=== PATIENT | female | born 1980 | race Caucasian/White ===

== ENCOUNTER → 2016-06-18 | Outpatient (CLI) | payer MEDICAID ==
--- NOTE | 2016-06-18 14:55 | US ---
EXAM DESCRIPTION: US LOWER EXTREMITY VEINS LIMITED/UNILATERAL/FOLLOW UP CLINICAL HISTORY: 36 y/o F, SWELLING COMPARISON: None TECHNIQUE: Duplex venous ultrasound of the right lower extremity was performed. FINDINGS: The right lower extremity veins are fully compressible and demonstrate physiologic responses to Valsalva maneuvers. Color Doppler images show no intraluminal filling defect. IMPRESSION: Negative exam. No evidence of DVT in the right lower extremity. Electronically signed by: Bandar Yadav DO 06/18/2016 14:53
== END ==
LOC: US 14:16
PROVIDERS: ATTEND Internal Medicine Hematology & Oncology
DX: M79.89 Other specified soft tissue disorders (principal); C53.9 Malignant neoplasm of cervix uteri, unspecified

== ENCOUNTER 2016-06-26 13:06 | Emergency (ER) | payer MEDICAID ==
--- NOTE | 2016-06-26 14:02 | RAD ---
EXAM DESCRIPTION: XR CHEST 2 VIEWS CLINICAL HISTORY: Fever on Chemo COMPARISON: October 07, 2015 FINDINGS: A right-sided MediPort device remains in place. The cardiomediastinal silhouette is otherwise unremarkable. There is no airspace consolidation or pleural effusion. There is no pneumothorax or acute fracture. IMPRESSION: Negative exam. No evidence of pneumonia or other intrathoracic abnormality to explain patient's symptoms. Electronically signed by: Bandar Yadav DO 06/26/2016 14:00
[2016-06-26] MEDS ORDERED: levoFLOXacin 500 MG TAB PO ONE (14:25)
[2016-06-26] MEDS ORDERED: POTASSIUM CHLORIDE 20 MEQ TAB PO ONE (14:25)
--- NOTE | 2016-06-26 14:29 | ED.PDOC ---
History of Present Illness - General Chief Complaint: Fever Stated Complaint: fever,chills Time Seen by Provider: 06/26/16 13:11 Source: patient, RN notes reviewed, Vital Signs reviewed Exam Limitations: no limitations - History of Present Illness Initial Comments: Patient started with chills last night and a fever today. She is on chemotherapy for cervical cancer and her oncologist had her come in to be checked out. She is complaining of some right flank pain and a head ache also. Her last chemotherapy treatment was 10 days ago. Timing/Duration: yesterday Fever Severity/Quality: other - 101.6 Fever Therapy REVENUE CYCLE MANAGER: Tylenol Associated Symptoms: headache, other - flank pain Review of Systems - Review of Systems Constitutional: States: chills, fever. Denies: diaphoresis, malaise, weakness EENTM: States: no symptoms reported. Denies: ear pain, ear discharge, nose pain , nose congestion, throat pain, mouth pain Respiratory: States: no symptoms reported. Denies: cough, orthopnea, short of breath, stridor, wheezing Cardiology: States: no symptoms reported. Denies: chest pain Gastrointestinal/Abdominal: States: no symptoms reported. Denies: abdominal pain, nausea, vomiting Genitourinary: States: no symptoms reported, other - HAs urostomy. Was having irritation and bleeding so she stopped her Warfarin about 8 days ago. Musculoskeletal: States: back pain. Denies: joint pain, muscle pain, muscle stiffness, neck pain Skin: States: no symptoms reported Neurological: States: headache. Denies: numbness, paresthesia, tingling, tremors, weakness Endocrine: States: no symptoms reported Past Medical History (General) - Patient Medical History Hx Seizures: No Hx Asthma: No Hx Cardiac Disorders: No Hx Congestive Heart Failure: No Hx Pacemaker: No Hx Hypertension: Yes Hx Diabetes: No Hx Cancer: Yes - cervical Hx MRSA: No Surgical History: cancer surgery - Vaccination History Hx Tetanus, Diphtheria Vaccination: No Hx Influenza Vaccination: No Hx Pneumococcal Vaccination: No Immunizations Up to Date: Yes - Social History Hx Tobacco Use: No Hx Chewing Tobacco Use: No Hx Alcohol Use: No Hx Substance Use: No Hx Substance Use Treatment: No Hx Depression: Yes - Female History Patient is a Female of Child Bearing Age (10 -59 yrs old): No Patient : No - Triage Comment ED Triage Comment: cervical ca pt Family Medical History - Family History Mother Family History: No Known Living Status: Still Living Physical Exam - Physical Exam General Appearance: Alert, Comfortable, No apparent distress ENT Exam: normal ENT inspection Neck: non-tender, full range of motion, supple, normal inspection Respiratory: chest non-tender, lungs clear, normal breath sounds, no respiratory distress, no accessory muscle use Cardiovascular/Chest: normal peripheral pulses, regular rate, rhythm, no edema, no gallop, no JVD, no murmur Gastrointestinal/Abdominal: normal bowel sounds, non tender, soft, no organomegaly, no pulsatile mass, other - Urostomy and colostomy bags in place Extremity: normal range of motion, non-tender, normal inspection, no pedal edema Neurologic: no motor/sensory deficits, alert, normal mood/affect, oriented x 3 Skin Exam: normal color, warm/dry Lymphatic: no adenopathy Progress - Progress Progress: 06/26/16 14:31 Urine shows infection. Will start Levaquin. She has not been taking the Coumadin so not worried about interaction. Her potassium is also low so will give 40meq PO Finally, will give 1L NS bolus. 06/26/16 15:17 - Results/Orders Results/Orders: Laboratory Tests 06/26/16 06/26/16 13:22 13:55 WBC 7.4 RBC 3.43 L Hgb 9.8 L Hct 30.0 L MCV 87.6 MCH 28.5 MCHC 32.7 L RDW 18.2 H Plt Count 54 L MPV 8.6 Absolute Neuts (auto) 6.10 Absolute Lymphs (auto) 0.90 L Absolute Monos (auto) 0.50 Absolute Eos (auto) 0.10 Absolute Basos (auto) 0.00 Neutrophils % 81.4 H Lymphocytes % 11.5 L Monocytes % 6.2 Eosinophils % 0.7 L Basophils % 0.2 Sodium 131 L Potassium 3.1 L Chloride 95 L Carbon Dioxide 26 Anion Gap 13.1 BUN 14 Creatinine 0.89 BUN/Creatinine Ratio 15.7 Random Glucose 111 H Serum Osmolality 263.8 L Calcium 8.9 Total Bilirubin 0.7 AST 16 ALT 15 Alkaline Phosphatase 92 Serum Total Protein 7.5 Albumin 3.6 Globulin 3.9 H Albumin/Globulin Ratio 0.9 L Urine Color Yellow Urine Appearance Cloudy Urine pH 6.0 Ur Specific [place] 1.010 Urine Protein 30 Urine Glucose (UA) Negative Urine Ketones Negative Urine Blood Small H Urine Nitrite Positive H Urine Bilirubin Negative Urine Urobilinogen 0.2 Ur Leukocyte Esterase Small H Urine RBC 5-10 H Urine WBC 10-20 H Ur Epithelial Cells 0 Urine Bacteria 2+ H - EKG/XRAY/CT XRAY: chest Xray Comments: No acute disease per Radiology Departure - Departure Clinical Impression: UTI (urinary tract infection) Time of Disposition: 15:17 Disposition: Discharge to Home or Self Care Condition: Good Departure Forms: ED Discharge - Pt. Copy, Patient Portal Self Enrollment Instructions: DI for Urinary Tract Infection (UTI) Diet: resume usual diet Referrals: [Primary Care Provider] - 1-5 Days Prescriptions: Levofloxacin [Levaquin] 500 mg PO DAILY #6 tab Home Medications: Ambulatory Orders Ibuprofen 400 mg PO BID 10/03/15 Ibuprofen 400 mg PO Q6H PRN 10/03/15 Morphine Sulfate [Morphine Sulfate ER] 60 mg PO BID 10/03/15 Alprazolam [Alprazolam ER] 2 mg PO BEDTIME PRN 06/26/16 Gabapentin [Neurontin] 300 mg PO TID 06/26/16 HYDROcodone 10MG/APAP 325MG [[place] 10/325] 1 tab PO Q6HRS PRN 06/26/16 Levofloxacin [Levaquin] 500 mg PO DAILY #6 tab 06/26/16 Warfarin Sodium 7.5 mg PO DAILY 06/26/16 Additional Instructions: Increase fluid intake. Follow up with Oncologist.
[2016-06-26] MEDS ORDERED: SODIUM CHLORIDE 0.9% 1000ML 1,000 ML IVS ONE (14:33)
[2016-06-26] MEDS ORDERED: HEPARIN SODIUM 100 U/ML 5 ML SYG IV ONE (14:35)
[2016-06-26 15:29] VITALS: BP 115/71; O2SAT 97
[2016-06-26 15:49] VITALS: TEMP 98.9
== END 2016-06-26 15:49 | disposition home or self-care (01) ==
LOC: ER 13:06
DX: N39.0 Urinary tract infection, site not specified (principal); C53.9 Malignant neoplasm of cervix uteri, unspecified; R51 Headache; I10 Essential (primary) hypertension; Z79.899 Other long term (current) drug therapy; Z79.01 Long term (current) use of anticoagulants
CPT/HCPCS: 36415; 71020; 80053; 81001; 85025; 87040; 87086; 87088; 87186; J1642; J7030

== ENCOUNTER → 2016-07-14 | Outpatient (CLI) | payer MEDICAID | END | disposition home or self-care (01) | LOC: LAB.O 09:08 | PROVIDERS: ATTEND Internal Medicine Hematology & Oncology | DX: C53.9 Malignant neoplasm of cervix uteri, unspecified (principal) ==

== ENCOUNTER → 2016-07-22 | Outpatient (CLI) | payer MEDICAID | END | disposition home or self-care (01) | LOC: LAB.O 09:13 | PROVIDERS: ATTEND Internal Medicine Hematology & Oncology | DX: C53.9 Malignant neoplasm of cervix uteri, unspecified (principal); Z72.0 Tobacco use ==

== ENCOUNTER 2016-09-19 04:06 | Emergency (ER) | payer MEDICAID ==
[2016-09-19] MEDS ORDERED: HYDROmorphone HCL INJ 2 MG/ML VIAL IV ONE (04:23)
[2016-09-19] MEDS ORDERED: SODIUM CHLORIDE 0.9% (FLUSH) 10 ML SYG IV PRN (04:23)
[2016-09-19] MEDS ORDERED: SODIUM CHLORIDE 0.9% 1000ML 1,000 ML IVS PRN (04:28)
--- NOTE | 2016-09-19 04:30 | ED.PDOC ---
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 03/17. CERVICAL CANCER SURGERY IN [place]; NOW HAS COLOSTOMY AND UROSTOMY BAGS WHICH ARE WORKING JUST FINE. HAD KIDNEY STENTS B/C TUMOR WAS PRESSING ON URETER PRIOR TO SURGERY. MOST RECENT CHEMO 2 WKS AGO. H/O TUBAL TIGATION. - History of Present Illness Timing/Duration: constant Quality/Severity: severe, sharpness Back Pain Location: other - L FLANK Improving Factors: nothing Worsening Factors: nothing Associated Symptoms: denies symptoms Allergies/Adverse Reactions: Allergies NO KNOWN ALLERGY Allergy (Verified 09/19/16 04:14) Home Medications: Ambulatory Orders Morphine Sulfate [Morphine Sulfate ER] 60 mg PO BID 10/03/15 Alprazolam [Alprazolam ER] 2 mg PO BEDTIME PRN 06/26/16 Gabapentin [Neurontin] 300 mg PO TID 06/26/16 HYDROcodone 10MG/APAP 325MG [[place] 10/325] 1 tab PO Q6HRS PRN 06/26/16 Sulfa/Trimeth 800/160 (Ds) Tab [Bactrim DS Tab] 1 unit PO BID #14 tab 09/19/16 Review of Systems - Review of Systems Constitutional: States: no symptoms reported EENTM: States: no symptoms reported Respiratory: States: no symptoms reported Cardiology: States: no symptoms reported Gastrointestinal/Abdominal: States: abdominal pain. Denies: constipation, diarrhea, nausea Genitourinary: Denies: dysuria, frequency, hematuria Musculoskeletal: States: no symptoms reported Skin: States: no symptoms reported Neurological: States: no symptoms reported Endocrine: States: no symptoms reported Hematologic/Lymphatic: States: no symptoms reported All other Systems: Reviewed and Negative Past Medical History (General) - Patient Medical History Hx Seizures: No Hx Asthma: No Hx Cardiac Disorders: No Hx Congestive Heart Failure: No Hx Pacemaker: No Hx Hypertension: Yes Hx Diabetes: No Hx Renal Disease: Yes - kidney stents, left Hx Cancer: Yes - cervical Hx MRSA: No Surgical History: Hysterectomy, other - Vaccination History Hx Tetanus, Diphtheria Vaccination: No Hx Influenza Vaccination: No Hx Pneumococcal Vaccination: No - Social History Hx Tobacco Use: No Hx Chewing Tobacco Use: No Hx Alcohol Use: No Hx Substance Use: No Hx Substance Use Treatment: No Hx Depression: Yes - Female History Patient : No Family Medical History - Family History Mother Family History: No Known Living Status: Still Living Physical Exam - Physical Exam General Appearance: Agitated, Obvious distress Eyes, Ears, Nose, Throat Exam: PERRL/EOMI, normal ENT inspection Neck Exam: non-tender, full range of motion Cardiovascular/Respiratory: regular rate, rhythm, no M/R/G Peripheral Pulses: radial,right: 2+, radial,left: 2+ Gastrointestinal/Abdominal: normal bowel sounds, non tender, soft, no organomegaly, no pulsatile mass Back Exam: normal inspection, CVA tenderness (L) Extremity Exam: no evidence of injury, normal range of motion Neurologic: roll capper II-XII nml as tested, no motor/sensory deficits, alert, oriented x 3 Skin Exam: normal color, warm/dry Progress - Results/Orders Results/Orders: UA = HEMORRHAGIC CYCTITIS. HCG NEG CBC = LEUKOPENIA, ANEMIA - FROM KNOWN CANCER AND CURRENT CHEMO. CT = HYDRONEPHROSIS/URETER FROM KNOWN CANCER FOR WHICH HAS HAD STENTS. NO STONES. I INSTRUCTED PT TO F/U WITH ONC AND URO TODAY TO ENSURE HER URETERAL STENTS ARE STILL FUNCTIONING. Departure - Departure Clinical Impression: Hemorrhagic cystitis, Hydroureter on left, Flank pain, acute, Leukopenia due to antineoplastic chemotherapy, Anemia due to antineoplastic chemotherapy Disposition: Discharge to Home or Self Care Condition: Fair Departure Forms: ED Discharge - Pt. Copy, Patient Portal Self Enrollment Instructions: DI for Urinary Tract Infection (UTI) Diet: regular diet Activity: increase activity as tolerated Referrals: Jessie Carroll MD [Primary Care Provider] - 1-2 Days Prescriptions: Sulfa/Trimeth 800/160 (Ds) Tab [Bactrim DS Tab] 1 unit PO BID #14 tab Home Medications: Ambulatory Orders Morphine Sulfate [Morphine Sulfate ER] 60 mg PO BID 10/03/15 Alprazolam [Alprazolam ER] 2 mg PO BEDTIME PRN 06/26/16 Gabapentin [Neurontin] 300 mg PO TID 06/26/16 HYDROcodone 10MG/APAP 325MG [[place] 10/325] 1 tab PO Q6HRS PRN 06/26/16 Sulfa/Trimeth 800/160 (Ds) Tab [Bactrim DS Tab] 1 unit PO BID #14 tab 09/19/16
[2016-09-19] MEDS ORDERED: MORPHINE SULFATE INJ 10 MG/ML VIAL IV ONE (05:10)
[2016-09-19] MEDS ORDERED: ONDANSETRON INJ 4 MG/2 ML VIAL IV ONE (05:11)
--- NOTE | 2016-09-19 05:14 | CT ---
EXAM DESCRIPTION: Abdoment/Pelvis w/o Contrast09/19/2016 5:07 AM CDT CLINICAL HISTORY: 36 years, Female, L FLANK PAIN COMPARISON: CT abdomen and pelvis with contrast June 13, 2015. TECHNIQUE: Volumetric CT acquisition was performed through the abdomen and pelvis. Images in the axial and coronal planes were presented for interpretation This exam was performed according to our departmental dose-optimization program, which includes automated exposure control, adjustment of the mA and/or kV according to patient size and/or use of iterative reconstruction technique. FINDINGS: The visualized portions of the lung bases are clear. The cardiomediastinal structures are within normal limits. Within the upper abdomen, the liver and spleen are normal in size and morphology. The gallbladder is normal in morphology. The intra/extrahepatic biliary tree is normal in appearance. The pancreas and adrenal glands are normal. The right kidney is normal in size. There is mild right-sided hydronephrosis and hydroureter. There are no right renal calculi or distal obstructing stones. The left kidney is edematous and enlarged. There is moderate left-sided hydronephrosis and hydroureter with periureteral and perinephric stranding. There is a right lower quadrant ileal conduit. The stomach and small intestines are within normal limits without evidence of bowel dilation or wall thickening. The appendix is not well-visualized. There are surgical changes from sigmoid colectomy. There is a left lower quadrant colostomy. The patient is status post cystectomy. There is soft tissue thickening throughout the posterior pelvis as seen on axial image 75 measuring up to 2 cm. The uterus and ovaries are surgically absent. There are no pathologically enlarged inguinal, retroperitoneal, portacaval, or mesenteric lymph nodes. The soft tissue structures of the abdominal wall are normal. The visualized osseous structures are within normal limits for the patient's age. The abdominal aorta and its primary branches are normal in course and caliber. Limited evaluation of the venous structures demonstrates no gross abnormalities. IMPRESSION: 1. Status post cystectomy and sigmoid colectomy with right lower quadrant ileal conduit and left lower quadrant colostomy. There is soft tissue thickening throughout the posterior pelvis; likely posttreatment related. Correlation with prior imaging is recommended. 2. Moderate left hydronephrosis and hydroureter mild right-sided hydronephrosis. There are no right-sided renal calculi or distal obstructing stones. Electronically signed by: Ji Davis MD 09/19/2016 5:13 AM CDT
[2016-09-19 05:39] VITALS: O2SAT 98
[2016-09-19] MEDS ORDERED: cefTRIAXone SODIUM 1 GM VIAL IM ONE (05:58)
[2016-09-19] MEDS ORDERED: LIDOCAINE 1% 10 ML VIAL INJ ONE (06:02)
[2016-09-19 06:15] VITALS: BP 109/70; TEMP 97.2
== END 2016-09-19 06:20 | disposition home or self-care (01) ==
LOC: ER 04:06
DX: N30.90 Cystitis, unspecified without hematuria (principal); D64.81 Anemia due to antineoplastic chemotherapy; D70.1 Agranulocytosis secondary to cancer chemotherapy; N13.30 Unspecified hydronephrosis; I10 Essential (primary) hypertension; C53.9 Malignant neoplasm of cervix uteri, unspecified; Z79.899 Other long term (current) drug therapy; Z93.3 Colostomy status; Z93.6 Other artificial openings of urinary tract status
CPT/HCPCS: 74176; 80053; 81001; 81025; 85025; 87086; 87088; 87186; J0696; J1170; J2270; J2405; J7030

== ENCOUNTER 2016-10-22 16:27 | Emergency (ER) | payer MEDICAID ==
--- NOTE | 2016-10-22 18:01 | US ---
EXAM DESCRIPTION: Venous, lower Extremity RT CLINICAL HISTORY: 36 years Female Knots to RLE; hx DVT's in the past COMPARISON: None. TECHNIQUE: Duplex imaging performed to evaluate the right lower extremity venous structures. Compression imaging and augmentation imaging performed. The common femoral, superficial femoral, popliteal, greater saphenous and posterior tibial veins were examined. FINDINGS: No thrombus is identified in the right lower extremity venous structures. IMPRESSION: No DVT is identified in the right lower extremity. Electronically signed by: Jose R Salazar MD 10/22/2016 6:01 PM CDT
--- NOTE | 2016-10-22 18:02 | US ---
EXAM DESCRIPTION: Venous, lower Extremity LT CLINICAL HISTORY: 36 years Female Knots to LLE; hx DVT's in the past COMPARISON: None. TECHNIQUE: Duplex imaging performed to evaluate the left lower extremity venous structures. Compression imaging and augmentation imaging performed. The common femoral, superficial femoral, popliteal, greater saphenous and posterior tibial veins were examined. FINDINGS: No thrombus is identified in the left lower extremity venous structures. IMPRESSION: No DVT is identified in the left lower extremity. Electronically signed by: Jose R Salazar MD 10/22/2016 6:02 PM CDT
--- NOTE | 2016-10-22 18:33 | ED.PDOC ---
History of Present Illness - General Chief Complaint: General Stated Complaint: Knots to BLE; tenderness Time Seen by Provider: 10/22/16 18:24 Source: patient Exam Limitations: no limitations - History of Present Illness Initial Comments: Patient is a 36 you F being treated with chemotx for cervical CA who presents with one day of "bumps" to her right leg and upper left leg. These areas are quarter size areas of erythema that are painful to touch. She says they feel like there are "knots" in them. She has no hx of these. She was worried that her right leg was swollen. No chest pain/fever/dyspnea. Her oncologist told her to come and get checked for "blood clots". No other complaints. Timing/Duration: 24 hours Severity: mild Improving Factors: nothing Worsening Factors: nothing Associated Symptoms: denies symptoms Allergies/Adverse Reactions: Allergies NO KNOWN ALLERGY Allergy (Verified 09/19/16 04:14) Home Medications: Ambulatory Orders Morphine Sulfate [Morphine Sulfate ER] 60 mg PO BID 10/03/15 Alprazolam [Alprazolam ER] 2 mg PO BEDTIME PRN 06/26/16 Gabapentin [Neurontin] 300 mg PO TID 06/26/16 HYDROcodone 10MG/APAP 325MG [[place] 10/325] 1 tab PO Q6HRS PRN 06/26/16 Sulfa/Trimeth 800/160 (Ds) Tab [Bactrim DS Tab] 1 unit PO BID #14 tab 09/19/16 Review of Systems - Review of Systems Constitutional: States: no symptoms reported EENTM: States: no symptoms reported Respiratory: States: no symptoms reported Cardiology: States: no symptoms reported Gastrointestinal/Abdominal: States: no symptoms reported Genitourinary: States: no symptoms reported Musculoskeletal: States: no symptoms reported Skin: States: see HPI Neurological: States: no symptoms reported Endocrine: States: no symptoms reported Hematologic/Lymphatic: States: no symptoms reported Past Medical History (General) - Patient Medical History Hx Seizures: No Hx Stroke: No Hx Asthma: No Hx Cardiac Disorders: No Hx Congestive Heart Failure: No Hx Pacemaker: No Hx Hypertension: Yes Hx Diabetes: No Hx Renal Disease: Yes - kidney stents, left Hx Cancer: Yes - Cervical - receiving chemo q.21 days (last tx 10/13/16) Hx MRSA: No - Vaccination History Hx Tetanus, Diphtheria Vaccination: No Hx Influenza Vaccination: No Hx Pneumococcal Vaccination: No - Social History Hx Tobacco Use: No Hx Chewing Tobacco Use: No Hx Alcohol Use: No Hx Substance Use: No Hx Substance Use Treatment: No Hx Depression: Yes - Female History Patient is a Female of Child Bearing Age (10 -59 yrs old): No Patient : No Family Medical History - Family History Mother Family History: No Known Living Status: Still Living Hx Family;Other: Pt is adopted Physical Exam - Physical Exam General Appearance: Alert Respiratory: lungs clear Cardiovascular/Chest: regular rate, rhythm Gastrointestinal/Abdominal: normal bowel sounds, non tender, soft Extremity: normal range of motion, non-tender, normal inspection, no pedal edema Skin Exam: other - 5 quarter size rashes, erythmatic, non-blanching and TTP . 4 on right thight and one left thigh. Lymphatic: no adenopathy Progress - Progress Progress: 10/22/16 18:35 Bilateral lower Extremity venous doppler showed no DVT. Departure - Departure Clinical Impression: Rash and nonspecific skin eruption Disposition: Discharge to Home or Self Care Condition: Good Departure Forms: ED Discharge - Pt. Copy, Patient Portal Self Enrollment Diet: resume usual diet Activity: increase activity as tolerated Referrals: Jessie Carroll MD [Primary Care Provider] - 1-2 Weeks Home Medications: Ambulatory Orders Morphine Sulfate [Morphine Sulfate ER] 60 mg PO BID 10/03/15 Alprazolam [Alprazolam ER] 2 mg PO BEDTIME PRN 06/26/16 Gabapentin [Neurontin] 300 mg PO TID 06/26/16 HYDROcodone 10MG/APAP 325MG [[place] 10/325] 1 tab PO Q6HRS PRN 06/26/16 Sulfa/Trimeth 800/160 (Ds) Tab [Bactrim DS Tab] 1 unit PO BID #14 tab 09/19/16 Additional Instructions: Follow up with your oncologist tomorrow as scheduled. Return to the ER for fever, chest pain, or shortness of breath.
[2016-10-22 18:52] VITALS: BP 118/87; TEMP 98.8; O2SAT 99
== END 2016-10-22 18:48 | disposition home or self-care (01) ==
LOC: ER 16:27
DX: R21 Rash and other nonspecific skin eruption (principal); R22.43 Localized swelling, mass and lump, lower limb, bilateral; C53.9 Malignant neoplasm of cervix uteri, unspecified; I10 Essential (primary) hypertension; N28.9 Disorder of kidney and ureter, unspecified; Z79.899 Other long term (current) drug therapy

== ENCOUNTER 2016-11-05 07:11 | Inpatient (IN) | payer MEDICAID ==
--- NOTE | 2016-11-05 07:23 | ED.PDOC ---
History of Present Illness - General Chief Complaint: Abdominal Pain Time Seen by Provider: 11/05/16 07:17 Source: patient Exam Limitations: no limitations - History of Present Illness Timing/Duration: 4-6 hours Severity: moderate Improving Factors: nothing Worsening Factors: nothing Associated Symptoms: other - NONE Allergies/Adverse Reactions: Allergies NO KNOWN ALLERGY Allergy (Verified 11/05/16 07:23) Home Medications: Ambulatory Orders Morphine Sulfate [Morphine Sulfate ER] 30 mg PO BID 10/03/15 Alprazolam [Alprazolam ER] 0.5 mg PO Q6HRS PRN 06/26/16 Gabapentin [Neurontin] 300 mg PO TID 06/26/16 HYDROcodone 10MG/APAP 325MG [[place] 10/325] 1 tab PO Q6HRS PRN 06/26/16 Cyclobenzaprine HCl [Flexeril] 5 mg PO TID PRN 11/05/16 Review of Systems - Review of Systems Constitutional: Denies: chills, fever EENTM: States: no symptoms reported Respiratory: Denies: cough, short of breath Cardiology: Denies: chest pain, palpitations Genitourinary: States: no symptoms reported, other - HAS ILEOSTOMY Musculoskeletal: States: no symptoms reported Skin: States: no symptoms reported Neurological: States: no symptoms reported Past Medical History (General) - Patient Medical History Hx Seizures: No Hx Stroke: No Hx Asthma: No Hx Cardiac Disorders: No Hx Congestive Heart Failure: No Hx Pacemaker: No Hx Hypertension: Yes Hx Diabetes: No Hx Renal Disease: Yes - kidney stents, left Hx Cancer: Yes - Cervical - receiving chemo q.21 days (last tx 10/13/16) Hx MRSA: No Other Surgeries:: PELVIC EXONERATION WITH ILEOSTOMY AND COLOSTOMY - Vaccination History Hx Tetanus, Diphtheria Vaccination: No Hx Influenza Vaccination: No Hx Pneumococcal Vaccination: No - Social History Hx Tobacco Use: No Hx Chewing Tobacco Use: No Hx Alcohol Use: No Hx Substance Use: No Hx Substance Use Treatment: No Hx Depression: Yes - Female History Patient : No Family Medical History - Family History Mother Family History: No Known Living Status: Still Living Hx Family;Other: Pt is adopted Physical Exam - Physical Exam General Appearance: Well Developed, Well Nourished, Other - MOD DISTRESS DUE TO PAIN Eye Exam: bilateral normal Neck: non-tender, full range of motion, supple Respiratory: lungs clear, normal breath sounds, no respiratory distress Cardiovascular/Chest: regular rate, rhythm, no murmur Gastrointestinal/Abdominal: normal bowel sounds, soft, no organomegaly, other - TENDER NEIDA LQ'S WITH NL APPEARING OSTOMIES Back Exam: normal inspection, no CVA tenderness Extremity: normal range of motion Neurologic: no motor/sensory deficits, normal mood/affect Skin Exam: normal color, warm/dry Lymphatic: no adenopathy Progress - Progress Progress: 11/05/16 08:53 BETTER, RESTING WELL, ABDOMEN SOFT, NON SURGICAL, 11/05/16 10:14 STILL FEELS BETTER BUT PULSE 120'S AFTER 1L NS. UA SHOWS INFX. WILL GET URINE AND BLOOD CX, START ABX AND ADMIT. - EKG/XRAY/CT XRAY: abdomen - NO FREE AIR, MOD STOOL, NO OBSTRUCTION Departure - Departure Clinical Impression: Pyelonephritis Abdominal pain Qualifiers: Abdominal location: left lower quadrant Qualified Code(s): R10.32 - Left lower quadrant pain Time of Disposition: 10:05 - D/W HOSPITALIST WILL ADMIT Disposition: Admit Patient Condition: Fair Referrals: Jessie Carroll MD [Primary Care Provider] - 1-2 Weeks Home Medications: Ambulatory Orders Morphine Sulfate [Morphine Sulfate ER] 30 mg PO BID 10/03/15 Alprazolam [Alprazolam ER] 0.5 mg PO Q6HRS PRN 06/26/16 Gabapentin [Neurontin] 300 mg PO TID 06/26/16 HYDROcodone 10MG/APAP 325MG [[place] 10/325] 1 tab PO Q6HRS PRN 06/26/16 Cyclobenzaprine HCl [Flexeril] 5 mg PO TID PRN 11/05/16
[2016-11-05] MEDS ORDERED: SODIUM CHLORIDE 0.9% 1000ML 1,000 ML IVS ONE ×2 (07:24→09:44)
[2016-11-05] MEDS ORDERED: PROMETHAZINE HCL INJ 12.5 MG in SODIUM CHLORIDE 0.9% 50ML 50 ML IVPB ONE (07:24)
[2016-11-05] MEDS ORDERED: HYDROmorphone HCL INJ 2 MG/ML VIAL IV ONE (07:24)
[2016-11-05] MEDS ORDERED: PROMETHAZINE HCL INJ 25 MG/ML VIAL ONE (07:40)
[2016-11-05] MEDS ORDERED: SODIUM CHLORIDE 0.9% 50ML 50 ML ONE (07:41)
--- NOTE | 2016-11-05 08:18 | RAD ---
EXAM DESCRIPTION: Abdomen Series CLINICAL HISTORY: 36 years Female, abdominal pain COMPARISON: July 22, 2015 FINDINGS: Upright PA chest with supine and upright views of the abdomen show that the lungs are clear. The heart is normal size. Bowel gas pattern unremarkable. Right subclavian venous port in good position. IMPRESSION: Normal study Electronically signed by: Alfredo Brown MD 11/05/2016 8:17 AM CDT
[2016-11-05] MEDS ORDERED: cefTRIAXone SODIUM 1 GM in SODIUM CHL 0.9% 50ML MIN-BAG+ 50 ML IVPB ONE (09:44)
[2016-11-05] MEDS ORDERED: SODIUM CHL 0.9% 50ML MIN-BAG+ 50 ML IVPB ONE (09:55)
[2016-11-05] MEDS ORDERED: cefTRIAXone SODIUM 1 GM VIAL ONE (09:55)
--- NOTE | 2016-11-05 10:36 | HP ---
SUPERVISING PHYSICIAN: Kareem Vicente MD CHIEF COMPLAINT: Abdominal pain that extends to the flank. HISTORY OF PRESENT ILLNESS: This is a 36-year-old female patient with an extensive history of cervical cancer that presented to the Emergency Room today with left sided abdominal pain that extended to the left flank. She has recently been on chemotherapy and administered last treatment on 10/13/16. She also had received blood last week and she does have a history of constipation. Workup in the Emergency Room revealed she had a urinary tract infection. Her WBCs were 3.5, hemoglobin 9.0, hematocrit 27, platelet count 23. Chemistries were unremarkable except BUN was 25. I was called for admission to the hospital for urinary tract infection. Before I accepted the patient, I contacted the patient's oncologist, Dr. Carroll in [place]. She had no issues with her being admitted to the hospital here except she requested that the patient have a CT scan of her abdomen to make sure there were not any acute processes that needed to be treated at her facility. A CT of the abdomen was done and per radiologic interpretation showed the spleen was at the upper limits of normal size, persistent left sided hydronephrosis and hydroureter observed, not significantly changed from a prior exam, the patient is post cystectomy, the patient is post distal colonic resection with colostomy, extensive presacral soft tissue thickening observed, worrisome for the possibility of neoplasm or postsurgical thickening. It remains changed from the prior exam. An abdominal x-ray was also obtained showing some constipation in the left portion of the colon, otherwise was a normal study. She was admitted to the Floor. PAST MEDICAL HISTORY: 1. Cervical cancer. PAST SURGICAL HISTORY: 1. Port placement by Dr. Espinoza. 2. Tubal ligation. 3. Stent of the kidney due to blockage of her ureter from cervical cancer mass. 4. Pelvic excavation with bladder removal and half of her colon removed with a urostomy and colostomy as well as a hysterectomy. CURRENT MEDICATIONS: Per the EMR. ALLERGIES: NO KNOWN DRUG ALLERGIES. SOCIAL HISTORY: She denies smoking, ETOH, or illicit drug use. She has three children and she is . REVIEW OF SYSTEMS: Negative except for as per history of present illness. PHYSICAL EXAMINATION: VITAL SIGNS: Temperature 99.8. Pulse 133. Blood pressure 127/88. Respiratory rate 18. O2 saturation 97% on room air. GENERAL: This is a 36-year-old female patient who is lying in her hospital bed. She is somewhat lethargic. HEENT: Normocephalic, atraumatic. Pupils are equal and reactive. NECK: Supple without mass. RESPIRATORY: Clear to auscultation bilaterally. CHEST: There is equal rise and fall of the chest with inspiration and expiration. CARDIOVASCULAR: Regular rate and rhythm. ABDOMEN: Soft, nondistended. It is diffuse tender, but slightly more tender to the left upper and lower quadrant. She does have some mild left flank pain. She has a colostomy in place as well as a urostomy. EXTREMITIES: No cyanosis, clubbing or edema. NEUROLOGIC: She is somewhat lethargic, but she awakens easily and is oriented times three. LABORATORY: Labs and films are as per the history of present illness. ASSESSMENT: 1. Urinary tract infection. 2. Thrombocytopenia. 3. Anemia with recent transfusion of blood last week. 4. Cervical cancer, recently completing chemotherapy on 10/13/16. 5. Urostomy and colostomy due to #4. 6. Constipation. PLAN: We will admit the patient to the hospital. She received some Rocephin in the Emergency Room. I will add Levaquin to that. We will monitor her cultures as they become available. Dr. Carroll was somewhat concerned with her platelets being as low as they were. She asked that if they drop below 20, that we give her platelet transfusion. She also asked us to monitor her hemoglobin and hematocrit. I will send Dr. Carroll the completed CT of the abdomen at her request and the patient has been told to take a disk to Dr. Carroll when she sees her next week. I will hold off on giving her anything for constipation as she states that once she gets on antibiotics, they give her diarrhea. If she has not had a bowel movement by tomorrow morning, we will give her some Milk of Magnesia. She also has antiemetics as needed as well as I have continued her home medications. I am also somewhat concerned about her heart rate being a little bit high although she says her heart rate runs in the one-teens anyway. She has received 3 liters of fluids and we will monitor her heart rate tomorrow. Otherwise, we will continue to monitor the patient closely and followup as needed. Dr. Vicente is the collaborating physician and available for consultation. #[id number] [facility]
--- NOTE | 2016-11-05 13:07 | CT ---
EXAM DESCRIPTION: Abdomen/Pelvis w/Contrast CLINICAL HISTORY: 36 years Female, ABDOMINAL PAIN COMPARISON: 19 September 2016 TECHNIQUE: Transaxial images were obtained during injector demonstrated intravenous contrast medium without oral contrast media. Sagittal and coronal reconstruction was performed.This exam was performed according to our departmental dose-optimization program, which includes automated exposure control, adjustment of the mA and/or kV according to patient size and/or use of iterative reconstruction technique. FINDINGS: Some scarring is observed in the right lung base. The liver is normal in appearance. The gallbladder is normal. No biliary ductal dilatation is observed. The spleen is at the upper limits of normal in size. No adrenal masses are detected. The pancreas is atrophic. Moderate left-sided hydronephrosis is observed. No right-sided hydronephrosis is seen. No solid mass or cyst is detected. Dilatation of the left ureter is observed. The dilatation is seen to extend the level of surgical clips. The hydronephrosis is similar to what was seen on the previous exam. The patient is post hysterectomy. There is evidence of extensive pelvic surgery. Presacral soft tissue thickening is observed. Bilateral osteotomies are observed in both lower quadrants. The patient is post cystectomy. No bone abnormality is seen. IMPRESSION: 1. The spleen is at the upper limits of normal in size. 2. Persistent left-sided hydronephrosis and hydroureter is observed. It is not significantly changed the prior exam. 3. The patient is post cystectomy. 4. The patient is post distal clonic resection with a colostomy. 5. Extensive presacral soft tissue thickening is observed. Its worrisome for the possibility of neoplasm or postsurgical thickening. It remains unchanged from the prior exam. Electronically signed by: Demar Mathew MD 11/05/2016 1:06 PM CDT
[2016-11-05] MEDS ORDERED: SODIUM CHLORIDE 0.9% (FLUSH) 10 ML SYG IV PRN (16:22)
[2016-11-05] MEDS ORDERED: SODIUM CHLORIDE 0.9% 1000ML 1,000 ML ONE (16:22)
[2016-11-05] MEDS ORDERED: SODIUM CHLORIDE 0.9% 1000ML 1,000 ML IVS PRN (16:25)
[2016-11-05] MEDS ORDERED: ONDANSETRON INJ 4 MG/2 ML VIAL IV PRN (16:27)
[2016-11-05] MEDS ORDERED: PANTOPRAZOLE SODIUM IV 40 MG VIAL IV SCH (16:30)
[2016-11-05] MEDS ORDERED: IV SET AND CAP CHANGE INJ INJ SCH (16:30)
[2016-11-05] MEDS ORDERED: HYDROcodone 10MG/APAP 325MG 1 EA TAB PO ONE (16:59)
[2016-11-05] MEDS ORDERED: NON-FORMULARY MEDICATION 1 EA MIS (Alprazolam [Alprazolam Er] 0.5 MG) PO PRN (18:34)
[2016-11-05] MEDS ORDERED: MORPHINE SULFATE INJ 10 MG/ML VIAL IV ONE (18:36)
[2016-11-05] MEDS ORDERED: MORPHINE ER 30 MG TAB ONE (20:29)
[2016-11-05] MEDS: KCL 20 MEQ/NS 1,000 ML IVS PRN (20:37)
[2016-11-05] MEDS: MORPHINE ER 30 MG TAB PO SCH (21:46)
[2016-11-05] MEDS: GABAPENTIN 300 MG CAP PO SCH (21:46)
[2016-11-05] MEDS ORDERED: PROCHLORPERAZINE INJ 10 MG/2 ML VIAL IV PRN (22:12)
[2016-11-06] MEDS ORDERED: levoFLOXacin 500MG IV 100 ML IVPB ONE ×2 (00:35→19:52)
[2016-11-06] MEDS: levoFLOXacin 500MG IV 500 MG in PREMIX BAG 1 BAG IVPB SCH ×2 (00:36→22:16)
[2016-11-06] MEDS: HYDROcodone 10MG/APAP 325MG 1 EA TAB PO PRN ×3 (00:41→21:23)
[2016-11-06] MEDS ORDERED: SODIUM CHL 0.9% 50ML MIN-BAG+ 0 ML IVPB ONE (01:26)
[2016-11-06] MEDS ORDERED: cefTRIAXone SODIUM 1 GM VIAL ONE ×3 (01:27→19:52)
[2016-11-06] MEDS: cefTRIAXone SODIUM 1 GM in SODIUM CHL 0.9% 50ML MIN-BAG+ 50 ML IVPB SCH ×2 (02:14→14:05)
[2016-11-06] MEDS ORDERED: ALPRAZolam 0.5 MG TAB ONE (02:37)
[2016-11-06] MEDS: CYCLOBENZAPRINE HCL 5 MG TAB PO PRN (02:38)
[2016-11-06] MEDS: ALPRAZolam 0.5 MG TAB PO PRN ×2 (02:54→21:23)
[2016-11-06] MEDS ORDERED: MAGNESIUM HYDROXIDE 30 ML UD ONE (03:04)
[2016-11-06] MEDS ORDERED: MAGNESIUM HYDROXIDE 30 ML UD PO ONE (03:05)
[2016-11-06] MEDS: KCL 20 MEQ/NS 1,000 ML IVS PRN ×2 (06:19→14:17)
[2016-11-06] MEDS: MORPHINE ER 30 MG TAB PO SCH ×2 (08:57→21:13)
[2016-11-06] MEDS: GABAPENTIN 300 MG CAP PO SCH ×3 (08:57→21:13)
[2016-11-06] MEDS ORDERED: cefTRIAXone SODIUM 1 GM VIAL IVPB ONE (12:00)
[2016-11-06] MEDS ORDERED: SODIUM CHL 0.9% 50ML MIN-BAG+ 50 ML IVPB ONE ×2 (12:52→19:52)
--- NOTE | 2016-11-06 15:41 | PCM.CORE ---
Physician DVT/VTE - Nurse DVT Assessment & Total Each Risk Factor Represents 3 Points: Hx of DVT/PE Each Risk Factor Represents 2 Points: Malignancy (present/past) DVT Assessment Score: 5 - 5 or more Very High Risk Treatments: Early Ambulation *, Sequential Compression Device
[2016-11-06] MEDS ORDERED: POTASSIUM CHLORIDE 20 MEQ TAB PO ONE (17:51)
[2016-11-06] MEDS ORDERED: PANTOPRAZOLE SODIUM IV 40 MG VIAL ONE (19:53)
[2016-11-06] MEDS ORDERED: PANTOPRAZOLE SODIUM IV 40 MG VIAL IV SCH (21:00)
[2016-11-06] MEDS: ACETAMINOPHEN 325 MG TAB PO PRN (22:51)
[2016-11-07] MEDS ORDERED: HEPARIN SODIUM 100 U/ML 5 ML SYG IV ONE (05:00)
[2016-11-07] MEDS: ACETAMINOPHEN 325 MG TAB PO PRN ×2 (05:33→20:43)
[2016-11-07] MEDS ORDERED: diphenhydrAMINE HCL 50 MG/ML VIAL IV ONE (08:44)
[2016-11-07] MEDS ORDERED: ACETAMINOPHEN 325 MG TAB PO ONE (08:44)
[2016-11-07] MEDS ORDERED: FUROSEMIDE INJ 20 MG/2 ML VIAL IV ONE (08:44)
--- NOTE | 2016-11-07 08:54 | PN ---
SUPERVISING PHYSICIAN: Nakul Devine MD DATE: 11/06/16 SUBJECTIVE: The patient is sitting up in her hospital bed. She is visiting with family. She states she feels much better today. She denies any nausea, vomiting, shortness of breath. She said she had a very good bowel movement out of her colostomy today. OBJECTIVE: VITAL SIGNS: Temperature 101.1. Pulse 121. Blood pressure 111/ 77. Respiratory rate 16. O2 saturation 98%. LUNGS: Clear to auscultation bilaterally. CARDIAC: Regular rate and rhythm. ABDOMEN: Soft, nontender, nondistended. Bowel sounds are positive. She has a colostomy in place as well as urostomy. NEUROLOGIC: Awake, alert and oriented times three. LABORATORY: WBC 2.8, hemoglobin 10.2, hematocrit 31, platelet count 22. Sodium 135, potassium 3.5, BUN 14, creatinine 0.76. Preliminary urine culture shows gram negative rods. Preliminary blood cultures show no growth after 24 hours. All other labs and films have been reviewed via the EMR. ASSESSMENT: 1. Urinary tract infection with preliminary blood cultures showing gram negative rods. 2. Thrombocytopenia. 3. Anemia with recent transfusion of blood last week. 4. Cervical cancer, recently completing chemotherapy on 10/13/16. 5. Urostomy and colostomy due to #4. 6. Constipation. PLAN: We will continue present supportive care. She is feeling much better although she is still running a temperature. We will for her urine culture before discharge for the sensitivities to evaluate her antibiotics. I have repeated her labs in the morning. We will call her oncologist, Dr. Carroll, in [place] tomorrow with an update. I have also sent the CT of her abdomen report to her clinic. She has had a good bowel movement, but will encourage her to use MiraLAX and stool softener. I will continue to monitor the patient closely and followup as needed. #[id number] [facility]
[2016-11-07] MEDS ORDERED: SODIUM CHLORIDE 0.9% 500ML 500 ML IVS SCH (09:00)
[2016-11-07] MEDS: MORPHINE ER 30 MG TAB PO SCH ×2 (10:10→20:23)
[2016-11-07] MEDS: GABAPENTIN 300 MG CAP PO SCH ×3 (10:10→20:23)
[2016-11-07] MEDS ORDERED: SODIUM CHLORIDE 0.9% 500ML 500 ML ONE (11:04)
[2016-11-07] MEDS: CYCLOBENZAPRINE HCL 5 MG TAB PO PRN (11:04)
[2016-11-07] MEDS: SODIUM CHLORIDE 0.9% (FLUSH) 10 ML SYG IV SCH ×2 (11:05→20:23)
[2016-11-07] MEDS ORDERED: MORPHINE SULFATE INJ 10 MG/ML VIAL IV ONE (15:19)
[2016-11-07] MEDS: DULoxetine HCL 30 MG CAP PO SCH (15:57)
[2016-11-07] MEDS ORDERED: ALPRAZolam 0.5 MG TAB PO ONE (16:01)
[2016-11-07] MEDS: PANTOPRAZOLE SODIUM TAB 40 MG PO SCH (18:36)
[2016-11-07] MEDS: ALPRAZolam 0.5 MG TAB PO PRN (18:36)
[2016-11-07] MEDS ORDERED: MAGNESIUM HYDROXIDE 30 ML UD PO ONE (18:50)
[2016-11-07] MEDS ORDERED: levoFLOXacin 500MG IV 100 ML IVPB ONE (20:13)
[2016-11-07] MEDS ORDERED: BIFIDOBACTERIUM INFANTIS 4 MG CAP PO SCH (21:00)
[2016-11-07] MEDS: levoFLOXacin 500MG IV 500 MG in PREMIX BAG 1 BAG IVPB SCH (22:13)
[2016-11-07] MEDS ORDERED: TEMAZEPAM 15 MG CAP PO ONE (22:45)
[2016-11-08] MEDS: PANTOPRAZOLE SODIUM TAB 40 MG PO SCH (06:53)
[2016-11-08] MEDS: GABAPENTIN 300 MG CAP PO SCH (08:56)
[2016-11-08] MEDS: MORPHINE ER 30 MG TAB PO SCH (08:56)
[2016-11-08] MEDS: DULoxetine HCL 30 MG CAP PO SCH (08:56)
[2016-11-08] MEDS: SODIUM CHLORIDE 0.9% (FLUSH) 10 ML SYG IV SCH (08:57)
--- NOTE | 2016-11-08 09:20 | PN ---
SUPERVISING PHYSICIAN: Nakul Devine MD DATE: 11/07/16 SUBJECTIVE: The patient is lying in her hospital bed. She is very tearful today. She has had a multitude of personal problems including a divorce and she is very depressed today. Otherwise, she has no complaints of abdominal pain. She does feel better since she had a bowel movement but no chest pain, nausea or vomiting. OBJECTIVE: VITAL SIGNS: She is afebrile. Heart rate 99. Blood pressure 110/74. Respiratory rate 16. O2 saturation 99%. CHEST: Clear to auscultation bilaterally. CARDIAC: Regular rate and rhythm. ABDOMEN: Soft, nontender, nondistended. Bowel sounds are positive. She has a colostomy in place and urostomy in place. NEUROLOGIC: Awake, alert and oriented times three. LABORATORY: WBC 2.4, hemoglobin 6.8, hematocrit 20.6, platelet count 26,000. Her hemoglobin and hematocrit after completion of 2 units of packed red blood cells are 10.4 and 31.3. Metabolic panel is basically within normal limits. Preliminary urine culture shows gram negative rods. Preliminary blood cultures show no growth after 48 hours. All other labs and films have been reviewed via the EMR. ASSESSMENT: 1. Urinary tract infection with preliminary blood cultures showing gram negative rods. 2. Thrombocytopenia. 3. Anemia with hemoglobin and hematocrit of 6.8 and 20.6 this AM, requiring two units of packed red blood cells. 4. Cervical cancer, recently completed chemotherapy on 10/13/16. 5. Urostomy and colostomy due to #4. 6. Constipation. PLAN: We will continue present supportive care. She received her 2 units of blood today and her hemoglobin and hematocrit have come up quite nicely. I did contact Dr. Carroll, her oncologist, and reported to her the patient's low hemoglobin and hematocrit this morning and although I do not see any obvious signs of bleeding, was quite concerned with her hemoglobin and hematocrit that had dropped overnight. The patient has an appointment with Dr. Carroll in [place] on November 14, but she would like the patient to come by her office on Thursday and have a CBC drawn to monitor her hemoglobin and hematocrit. Hopefully, her culture and sensitivity on her urine will be back in the morning and we can discharge her on oral medications. The patient was quite tearful today and depressed due to a recent divorce. I did give her an extra dose of Xanax. I have repeated her labs for in the morning to make sure she does not have another sudden drop in her hemoglobin and hematocrit. If it remains stable, she will discharge home tomorrow with close followup with Dr. Carroll on Thursday and Thursday of next week. Meanwhile, we will continue to monitor patient closely and followup as needed. Dr. Devine is the is the collaborating physician available for consultation. #[id number] [facility]
[2016-11-08] MEDS: HYDROcodone 10MG/APAP 325MG 1 EA TAB PO PRN (10:20)
[2016-11-08 10:56] VITALS: BP 130/85; TEMP 98.5; O2SAT 100
[2016-11-08] MEDS: CYCLOBENZAPRINE HCL 5 MG TAB PO PRN (13:46)
--- NOTE | 2016-11-15 18:51 | DS ---
SUPERVISING PHYSICIAN: Nakul Devine M.D. DISCHARGE DIAGNOSIS: 1. Urinary tract infection with final cultures indicating a Klebsiella planticola sensitive to all but Ampicillin, Piperacillin and Bactrim with the patient having been on parenteral antibiotics to include Rocephin showing improvement. 2. Thrombocytopenia secondary to previous chemotherapy regimen. 3. Anemia with hemoglobin and hematocrit of 6.8 and 20.6 on admission requiring 2 units of packed red blood cells showing to be stable prior to discharge secondary to previous chemotherapy regimen. 4. Cervical cancer having recently completed chemotherapy on 10/13/16. 5. Urostomy and colostomy due to #4. 6. Constipation, improved after treatment. HISTORY OF PRESENT ILLNESS: Ms. Scott is a 36-year-old female patient that has an extensive history of cervical cancer that presented to the Emergency Room on date of admission with left sided abdominal pain that extended to the left flank. She had recently been on chemotherapy and administered last treatment on 10/13/16. She also had received blood the week previous and has a known history of constipation. Workup in the Emergency Room revealed she had a urinary tract infection. Her WBCs were 3.5, hemoglobin 9.0, hematocrit 27, platelet count 23,000. Chemistries were unremarkable except BUN was slightly elevated at 25. Admission was requested for urinary tract infection. In the Emergency Department previous to admission, the on-call hospitalist contacted the patient's oncologist, Dr. Carroll in [place]. Dr. Carroll had no issues with the patient being admitted to the hospital except that she requested the patient have a CT scan of her abdomen to make sure there were not any acute processes that needed to be treated at her facility. A CT of the abdomen was completed and per radiologic interpretation revealed the spleen was at the upper limits of normal size, persistent left sided hydronephrosis and hydroureter observed, not significantly changed from a prior exam, the patient is post cystectomy as well as post distal colonic resection with colostomy, and extensive presacral soft tissue thickening was observed, worrisome for the possibility of neoplasm or postsurgical thickening. The CT remained unchanged from the previous exam. An abdominal x-ray was also obtained showing some constipation in the left portion of the colon, otherwise was a normal study. She was then admitted to the Floor in stable condition. LABORATORY: Initial white count on admission was 3.5, at discharge was 2.5. Hemoglobin initially was 9, hematocrit 27.0. On 11/07/16 after admission, she dropped down to hemoglobin 6.8, hematocrit 20.6 requiring transfusion of 2 units of packed cells. After infusion and recheck, an H&H revealed hemoglobin was 10.4 and 31.3. On 11/08/16, on date of discharge, hemoglobin dropped slightly down to 9.5, hematocrit was down to 28.5. Platelet count initially was 23,000 and had improved prior to discharge up to 31,000. Differential showed to be within normal limits. Chemistries showed normal electrolytes initially on admission with BUN 25, creatinine 0.81. Liver functions all were within normal limits. Calcium was 9.1, lactic acid 0.9. At discharge, electrolytes were within normal limits except for just a slightly elevated CO2 of 32, BUN was 13, creatinine was 0.99, calcium 9.0. Urinalysis on admission showed on dipstick a small amount of blood, positive nitrites with trace leukocyte esterase with microscopic revealing 1 to 3 RBCs, greater than 50 WBCs , 1 to 3 epithelials and 3+ bacteria. MICROBIOLOGY: She had a surveillance culture for MRSA that was no growth after 72 hours. She had 2 sets of blood cultures that remained negative after 5 days. Urine culture final results showed Klebsiella planticola sensitive to all but Ampicillin, Piperacillin and Bactrim. RADIOLOGY: Prior to admission, abdominal x-ray was completed per radiology interpretation was normal study. CT of the abdomen was also obtained prior to admission with IV contrast and per radiology interpretation there was note of spleen in the upper limits of normal with persistent left hydronephrosis and hydroureter which had not significantly changed prior to previous exams. There was note that the patient was post cholecystectomy as well as post distal colonic resection with colostomy. There was mention of extensive presacral soft tissue thickening observed which was worrisome for the possibility of neoplasm or postsurgical thickening, but remained unchanged from previous exam. HOSPITAL COURSE: Ms. Scott was admitted as noted in the History of Present Illness for urinary tract infection and anemia with abdominal pains. She was found to be constipated as well as with a urinary tract infection with final culture results showing as mentioned above, Klebsiella species. She was initially initiated on parenteral antibiotics to include Rocephin which was continued with her showing good response prior to discharge. She did drop her H &H as noted above and required transfusion of 2 units of packed cells with her completing without any complications. Her H&H had stabilized somewhat prior to discharge and it was felt that clinically she had improved well enough and she had had some good results with constipation being resolved, and was well hydrated with a followup appointment scheduled on Thursday of the week of discharge with a scheduled repeat H&H on Thursday. PLAN: The patient was discharged on 11/08/16 with instructions to have close clinical followup with Dr. Carroll on 11/14/16 at 9:30, and to please go to Dr. Carroll's office on Thursday11/10/16 for lab or to the hospital and have the lab results sent to both Alan Duggan and Dr. Carroll. She is to resume her home medications as directed and take new prescriptions as instructed. She was told to return to the hospital should she have any condition failure to improve or any other concerning symptoms. At discharge, new prescriptions were provided that included: 1. Azithromycin 500 mg daily, #7. 2. Align 4 mg at bedtime, #30. 3. Zanaflex 4 mg every 8 hours as needed, #20. The patient was discharged with diet as tolerated, activities as tolerated and condition at discharge was stable and improved. #[id number] [facility]
== END 2016-11-08 14:25 | disposition home or self-care (01) | DRG 690 ==
LOC: ER 07:11 → MS 10:35 → UNDOADMIN 10:35 → ER 15:00 → MS 15:00
PROVIDERS: ADMIT Nurse Practitioner Acute Care; ATTEND Nurse Practitioner Family
PROC: BW21YZZ Computerized Tomography (CT Scan) of Abdomen and Pelvis using Other Contrast (ICD-10-PCS; 2016-11-05)
PROC: 30233N1 Transfusion of Nonautologous Red Blood Cells into Peripheral Vein, Percutaneous Approach (ICD-10-PCS; principal; 2016-11-07)
DX: N39.0 Urinary tract infection, site not specified (principal); N13.1 Hydronephrosis with ureteral stricture, not elsewhere classified; D69.59 Other secondary thrombocytopenia; T45.1X5A Adverse effect of antineoplastic and immunosuppressive drugs, initial encounter; D64.9 Anemia, unspecified; F32.9 Major depressive disorder, single episode, unspecified; K59.00 Constipation, unspecified; I10 Essential (primary) hypertension; B96.1 Klebsiella pneumoniae [K. pneumoniae] as the cause of diseases classified elsewhere; Z85.41 Personal history of malignant neoplasm of cervix uteri; Z92.21 Personal history of antineoplastic chemotherapy; Z93.3 Colostomy status; Z93.51 Cutaneous-vesicostomy status; Z90.6 Acquired absence of other parts of urinary tract; Z90.49 Acquired absence of other specified parts of digestive tract; Z95.828 Presence of other vascular implants and grafts; Z63.5 Disruption of family by separation and divorce; Z79.891 Long term (current) use of opiate analgesic; Z79.899 Other long term (current) drug therapy; Y92.9 Unspecified place or not applicable; Z16.11 Resistance to penicillins; Z16.39 Resistance to other specified antimicrobial drug

== ENCOUNTER 2016-11-12 20:19 | Emergency (ER) | payer MEDICAID ==
--- NOTE | 2016-11-12 21:02 | ED.PDOC ---
History of Present Illness - General Chief Complaint: Lower Extremity Injury Stated Complaint: leg pain Time Seen by Provider: 11/12/16 20:46 Source: patient Exam Limitations: no limitations - History of Present Illness Initial Comments: Maddy Scott 36 y/o female with history of cervical cancer with distant metastases sp pelvic exanteration and had multiple radiation treatment to the pelvic region as well as multiple chemotherapy stated that she had sharp shooting pain on her right hip with radiation to the fron of her thighs.No history of trauma or twisting injury to backShe stated that her right lower extremities had been constantly swelled up since surgery and radiation treatment Occurred: yesterday Pain - Lower Extremity: moderate: Right Thigh/Hip Method of Injury: unknown, other - has far advanced cervical cancer Improving Factors: rest Worsening Factors: movement Allergies/Adverse Reactions: Allergies NO KNOWN ALLERGY Allergy (Verified 11/12/16 20:28) Home Medications: Ambulatory Orders Morphine Sulfate [Morphine Sulfate ER] 30 mg PO BID 10/03/15 Alprazolam [Alprazolam ER] 0.5 mg PO Q6HRS PRN 06/26/16 Gabapentin [Neurontin] 300 mg PO TID 06/26/16 HYDROcodone 10MG/APAP 325MG [Benton 10/325] 1 tab PO Q6HRS PRN 06/26/16 Cyclobenzaprine HCl [Flexeril] 5 mg PO TID PRN 11/05/16 Duloxetine HCl [Cymbalta] 60 mg PO DAILY 11/07/16 Azithromycin [Zithromax] 500 mg PO DAILY #7 tab 11/08/16 Bifidobacterium Infantis [Align] 4 mg PO BEDTIME 11/08/16 tiZANidine [Zanaflex] 4 mg PO Q8H PRN #20 tab 11/08/16 Review of Systems - Review of Systems Constitutional: States: no symptoms reported EENTM: States: no symptoms reported Respiratory: States: no symptoms reported Cardiology: States: no symptoms reported Gastrointestinal/Abdominal: States: no symptoms reported Genitourinary: States: no symptoms reported Musculoskeletal: States: see HPI, joint pain - right hip Skin: States: no symptoms reported Neurological: States: no symptoms reported Endocrine: States: no symptoms reported Hematologic/Lymphatic: States: no symptoms reported Past Medical History (General) - Patient Medical History Hx Seizures: No Hx Stroke: No Hx Asthma: No Hx of COPD: No Hx Cardiac Disorders: No Hx Congestive Heart Failure: No Hx Pacemaker: No Hx Hypertension: Yes Hx Diabetes: No Hx Renal Disease: Yes - kidney stents, left Hx Cancer: Yes - cervical Hx MRSA: Yes - 2015 Surgical History: other - pelvic exanteration with hysterectomy,colostomy, urostomy Other Surgeries:: venous doppler right leg -no dvt last month - Vaccination History Hx Tetanus, Diphtheria Vaccination: No Hx Influenza Vaccination: No Hx Pneumococcal Vaccination: No - Social History Hx Tobacco Use: No Hx Chewing Tobacco Use: No Hx Alcohol Use: No Hx Substance Use: No Hx Substance Use Treatment: No Hx Depression: Yes Hx Physical Abuse: No Hx Emotional Abuse: No - Female History Patient is a Female of Child Bearing Age (10 -59 yrs old): Yes Patient : No Family Medical History - Family History Father Living Status: Still Living Hx Family Hypertension: Yes - brother Hx Family Stroke: Yes - brother Hx Family Cancer: Yes - mom- cervical cancer Mother Family History: No Known Living Status: Still Living Hx Family;Other: Pt is adopted Physical Exam - Physical Exam General Appearance: Alert, Anxious, No apparent distress Eyes, Ears, Nose, Throat: PERRL/EOMI, normal ENT inspection, TMs normal, pharynx normal Neck: non-tender, full range of motion, supple, normal inspection Cardiovascular/Respiratory: regular rate, rhythm, no M/R/G, normal peripheral pulses, no JVD, normal breath sounds Gastrointestinal/Abdominal: non-tender, no organomegaly, other - patent urostomy and colostomy Back: normal inspection, no CVA tenderness Thigh/Hip: normal inspection, no evidence of injury, normal ROM, soft tissue tenderness - right hip Leg: normal inspection, no evidence of injury, swelling - right leg Knee: normal inspection, non-tender, no evidence of injury, normal ROM Foot: normal inspection, non-tender, no evidence of injury Neuro/Tendon: normal sensation, normal motor functions, normal tendon functions , responds to pain, no evidence tendon injury Mental Status: alert, oriented x 3 Skin: normal color, warm/dry Progress - Results/Orders Results/Orders: Vital Signs - 8 hr 11/12/16 11/12/16 11/12/16 20:27 21:36 22:08 Temperature 97.3 F L Pulse Rate [ 117 H 110 H 109 H left] Respiratory 18 18 18 Rate Blood Pressure 116/83 113/81 114/80 [left] O2 Sat by Pulse 99 97 97 Oximetry 11/12/16 21:01 IV Care:Saline Lock per Protoc QSHIFT 11/12/16 21:10 D-DIMER,QUANTITATIVE Stat Laboratory Results WBC 1.9 K/mm3 (4.8-10.8) L* 11/12/16 21:10 RBC 3.16 M/mm3 (4.20-5.40) L 11/12/16 21:10 Hgb 10.1 gm/dL (12.0-16.0) L 11/12/16 21:10 Hct 30.4 % (36.0-47.0) L 11/12/16 21:10 MCV 96.2 fl (81.0-99.0) 11/12/16 21:10 MCH 31.9 pg (27.0-31.0) H 11/12/16 21:10 MCHC 33.2 g/dL (33.0-37.0) 11/12/16 21:10 RDW 20.1 % (11.5-14.5) H 11/12/16 21:10 Plt Count 72 K/mm3 (130-400) L 11/12/16 21:10 MPV 8.1 fl (7.40-10.4) 11/12/16 21:10 Absolute Neuts (auto) 1.10 K/uL (1.8-6.8) L 11/12/16 21:10 Absolute Lymphs (auto) 0.60 K/uL (1.0-3.4) L 11/12/16 21:10 Absolute Monos (auto) 0.20 K/uL (0.2-0.8) 11/12/16 21:10 Absolute Eos (auto) 0.00 K/uL (0.0-0.4) 11/12/16 21:10 Absolute Basos (auto) 0.00 K/uL (0.0-0.1) 11/12/16 21:10 Neutrophils % Not Reportable 11/12/16 21:10 Neutrophils % (Manual) 54.0 % 11/12/16 21:10 Lymphocytes % Not Reportable 11/12/16 21:10 Lymphocytes % (Manual) 33.0 % 11/12/16 21:10 Monocytes % Not Reportable 11/12/16 21:10 Monocytes % (Manual) 11.0 % 11/12/16 21:10 Eosinophils % Not Reportable 11/12/16 21:10 Basophils % Not Reportable 11/12/16 21:10 Eosinophils 2.0 % 11/12/16 21:10 Platelet Estimate Decreased (NORMAL) 11/12/16 21:10 Normal RBC Morphology Normal rbc morph 11/12/16 21:10 Sodium 138 mmol/L (135-145) 11/12/16 21:10 Potassium 3.4 mmol/L (3.6-5.0) L 11/12/16 21:10 Chloride 100 mmol/L (101-111) L 11/12/16 21:10 Carbon Dioxide 31 mmol/L (21-31) 11/12/16 21:10 Anion Gap 10.4 (12-18) L 11/12/16 21:10 BUN 16 mg/dL (7-18) 11/12/16 21:10 Creatinine 0.94 mg/dL (0.6-1.3) 11/12/16 21:10 BUN/Creatinine Ratio 17.0 (10-20) 11/12/16 21:10 Random Glucose 88 mg/dL (70-105) 11/12/16 21:10 Serum Osmolality 276.3 mOsm/L (275-295) 11/12/16 21:10 Calcium 9.0 mg/dL (8.4-10.2) 11/12/16 21:10 Total Bilirubin 0.4 mg/dL (0.2-1.0) 11/12/16 21:10 AST 13 IU/L (10-42) 11/12/16 21:10 ALT 15 IU/L (10-60) 11/12/16 21:10 Alkaline Phosphatase 116 IU/L (42-121) 11/12/16 21:10 Creatine Kinase 20 IU/L (26-140) L 11/12/16 21:10 Serum Total Protein 8.0 gm/dL (6.4-8.2) 11/12/16 21:10 Albumin 3.3 g/dl (3.2-5.5) 11/12/16 21:10 Globulin 4.7 gm/dL (2.3-3.5) H 11/12/16 21:10 Albumin/Globulin Ratio 0.7 (1.1-1.9) L 11/12/16 21:10 Urine Color Yellow (Yellow) 11/12/16 21:10 Urine Appearance Clear (Clear) 11/12/16 21:10 Urine pH 6.5 (4.5-7.8) 11/12/16 21:10 Ur Specific [place] 1.015 (1.005-1.030) 11/12/16 21:10 Urine Protein Trace mg/dL 11/12/16 21:10 Urine Glucose (UA) Negative mg/dL (Negative) 11/12/16 21:10 Urine Ketones Negative mg/dL (NEGATIVE) 11/12/16 21:10 Urine Blood Trace-intact (Negative) H 11/12/16 21:10 Urine Nitrite Negative 11/12/16 21:10 Urine Bilirubin Negative (NEGATIVE) 11/12/16 21:10 Urine Urobilinogen 0.2 mg/dL (0.2-1.0) 11/12/16 21:10 Ur Leukocyte Esterase Negative (Negative) 11/12/16 21:10 Urine RBC 1-3 /hpf 11/12/16 21:10 Urine WBC 5-10 /hpf H 11/12/16 21:10 Ur Epithelial Cells 0 /hpf 11/12/16 21:10 Urine Bacteria 1+ 11/12/16 21:[address] Carroll regarding her leukopenia and stated since no fever no antibiotic coverage to be given and to keep appointment at her office thursday. - EKG/XRAY/CT XRAY: pelvis - no acute abnormalities noted /radiologist Departure - Departure Clinical Impression: Pain in left hip, Hx of cervical cancer, Leukopenia due to antineoplastic chemotherapy Time of Disposition: 23:12 Disposition: Discharge to Home or Self Care Condition: Fair Departure Forms: ED Discharge - Pt. Copy, Patient Portal Self Enrollment Referrals: Jessie Carroll MD [Primary Care Provider] - 1-2 Weeks Home Medications: Ambulatory Orders Morphine Sulfate [Morphine Sulfate ER] 30 mg PO BID 10/03/15 Alprazolam [Alprazolam ER] 0.5 mg PO Q6HRS PRN 06/26/16 Gabapentin [Neurontin] 300 mg PO TID 06/26/16 HYDROcodone 10MG/APAP 325MG [Benton 10/325] 1 tab PO Q6HRS PRN 06/26/16 Cyclobenzaprine HCl [Flexeril] 5 mg PO TID PRN 11/05/16 Duloxetine HCl [Cymbalta] 60 mg PO DAILY 11/07/16 Azithromycin [Zithromax] 500 mg PO DAILY #7 tab 11/08/16 Bifidobacterium Infantis [Align] 4 mg PO BEDTIME 11/08/16 tiZANidine [Zanaflex] 4 mg PO Q8H PRN #20 tab 11/08/16 Additional Instructions: Keep appointment with oncologist thursday11/14/2016 as scheduled;Follow up with primary md Dr. Esquivel 11/13/2016 call for appointment
[2016-11-12] MEDS: MORPHINE SULFATE INJ 10 MG/ML VIAL IV ONE (21:13)
[2016-11-12 21:41] VITALS: O2SAT 97
--- NOTE | 2016-11-12 22:12 | RAD ---
EXAM DESCRIPTION: Hip Bilateral (accession [id number]), Pelvis,2 or More Views (accession [id number]) CLINICAL HISTORY: pain tab COMPARISON: None FINDINGS: Two views of the right and left hip and two views of the pelvis were submitted. There is no acute fracture or dislocation. There are surgical sutures at the level of the pelvis. Bone mineralization is within normal limits. There is no radiopaque foreign body material. IMPRESSION: No acute abnormalities Electronically signed by: Salomon Castro MD 11/12/2016 10:12 PM CDT
--- NOTE | 2016-11-12 22:12 | RAD ---
EXAM DESCRIPTION: Hip Bilateral (accession [id number]), Pelvis,2 or More Views (accession [id number]) CLINICAL HISTORY: pain tab COMPARISON: None FINDINGS: Two views of the right and left hip and two views of the pelvis were submitted. There is no acute fracture or dislocation. There are surgical sutures at the level of the pelvis. Bone mineralization is within normal limits. There is no radiopaque foreign body material. IMPRESSION: No acute abnormalities Electronically signed by: Salomon Castro MD 11/12/2016 10:12 PM CDT
[2016-11-12 23:12] VITALS: TEMP 98.7
[2016-11-12] MEDS: HYDROCOD/APAP 10/325 (ER DISP) # 3 tablets PO ONE (23:19)
[2016-11-12 23:26] VITALS: BP 108/76
== END 2016-11-12 23:26 | disposition home or self-care (01) ==
LOC: ER 20:19
DX: M25.552 Pain in left hip (principal); D70.1 Agranulocytosis secondary to cancer chemotherapy; C53.9 Malignant neoplasm of cervix uteri, unspecified; C79.89 Secondary malignant neoplasm of other specified sites; Z79.899 Other long term (current) drug therapy; I10 Essential (primary) hypertension; Z86.14 Personal history of Methicillin resistant Staphylococcus aureus infection; F32.9 Major depressive disorder, single episode, unspecified
CPT/HCPCS: 36415; 72190; 73521; 80053; 81001; 82550; 85025; 85379; J2270

== ENCOUNTER 2016-11-15 23:53 | Observation (INO) | payer MEDICAID, OTHER ==
[2016-11-16] MEDS ORDERED: KETOROLAC TROMETHAMINE INJ 30 MG/ML VIAL IM ONE (00:19)
[2016-11-16] MEDS ORDERED: HYDROmorphone HCL INJ 2 MG/ML VIAL IV SCH (02:00)
--- NOTE | 2016-11-16 02:30 | RAD ---
EXAM DESCRIPTION: Pelvis portable AP view of the pelvis CLINICAL HISTORY: 36 years, Female, swelling with pain to upper leg, hx cervical cance COMPARISON: Portable AP view of the pelvis November 12, 2016 FINDINGS: There is no acute fracture or dislocation. The femoral heads are well seated in the acetabulum bilaterally. There are no significant degenerative changes. There is suture material within the pelvis consistent with prior bowel resection. There are surgical clips again noted in the right pelvis. Limited evaluation of the lower lumbar spine and sacrum demonstrate no gross abnormalities. The soft tissue structures of the pelvis and proximal thighs are grossly normal. IMPRESSION: No acute fracture or dislocation of the bony pelvis. Electronically signed by: Ji Davis MD 11/16/2016 2:30 AM CDT Workstation: [employer]
--- NOTE | 2016-11-16 02:32 | RAD ---
Procedure: XR TIBIA FIBULA 2 VIEWS Exam Date: 11/16/2016 Ordering Provider: Good Vicente Clinical Indication: swelling with pain to upper leg, hx cervical cancer Comparison: None Findings: There is no acute fracture or dislocation. There is no cortical abnormality. There is no lytic or sclerotic lesion. There is no subcutaneous gas. There is no radiopaque foreign body. Impression: 1. No acute findings in the right tibia and fibula. Electronically signed by: Garry Prince MD 11/16/2016 2:32 AM CDT
--- NOTE | 2016-11-16 02:36 | RAD ---
Procedure: XR FEMUR 2 VIEWS Exam Date: 11/16/2016 Ordering Provider: Good Vicente Clinical Indication: swelling with pain to upper leg, hx cervical cancer Comparison: None Findings: There is no acute fracture. There is no dislocation. There is no cortical abnormality. There is no lytic or sclerotic lesion. There is no subcutaneous gas. There is no suspicious calcification. Impression: 1. No acute findings in the right femur. Electronically signed by: Garry Prince MD 11/16/2016 2:29 AM CDT
--- NOTE | 2016-11-16 02:43 | ED.PDOC ---
History of Present Illness - General Chief Complaint: Lower Extremity Injury Stated Complaint: leg pain and swelling Time Seen by Provider: 11/15/16 23:56 Source: patient Exam Limitations: no limitations - History of Present Illness Initial Comments: The patient is a 36-year-old female with a history of cervical cancer status post radiation and chemotherapy as well as surgery. The patient has been having progressive pain and swelling to the right lower extremity for the past3- 4 weeks. She was recently admitted for workup for this including CT scan of the abdomen and pelvis and right lower extremity Doppler which were negative for a DVT. There was however the finding of possible recurrence in the presacral area on the right of a mass. The patient has follow-up tomorrow, Thursday with her oncologist for further evaluation for additional treatment of the problem. The patient presented tonight secondary to uncontrolled pain with her home narcotics. She reports increased swelling today in the right lower extremity compared to yesterday. She does appear to be neurovascularly intact. No palpable cords. Pain does worsen with pressure just above the inguinal ligament on the right medially. No other new symptoms. The patient did require transfusion last week. She does have known pancytopenia from the chemotherapy. Timing/Duration: unsure, constant Severity: severe Improving Factors: medication Worsening Factors: movement Associated Symptoms: malaise, weakness Allergies/Adverse Reactions: Allergies NO KNOWN ALLERGY Allergy (Verified 11/12/16 20:28) Home Medications: Ambulatory Orders Morphine Sulfate [Morphine Sulfate ER] 30 mg PO BID 10/03/15 Alprazolam [Alprazolam ER] 0.5 mg PO Q6HRS PRN 06/26/16 Gabapentin [Neurontin] 300 mg PO TID 06/26/16 HYDROcodone 10MG/APAP 325MG [[place] 10/325] 1 tab PO Q6HRS PRN 06/26/16 Cyclobenzaprine HCl [Flexeril] 5 mg PO TID PRN 11/05/16 Duloxetine HCl [Cymbalta] 60 mg PO DAILY 11/07/16 Azithromycin [Zithromax] 500 mg PO DAILY #7 tab 11/08/16 Bifidobacterium Infantis [Align] 4 mg PO BEDTIME 11/08/16 tiZANidine [Zanaflex] 4 mg PO Q8H PRN #20 tab 11/08/16 Review of Systems - Review of Systems Constitutional: States: malaise, weakness EENTM: States: no symptoms reported Respiratory: States: short of breath - with exertion Cardiology: States: no symptoms reported Gastrointestinal/Abdominal: States: abdominal pain - n the lower abdomen since her surgery Genitourinary: States: no symptoms reported - no new symptoms Musculoskeletal: States: see HPI Skin: States: no symptoms reported Neurological: States: anxiety All other Systems: No Change from Baseline Past Medical History (General) - Patient Medical History Hx Seizures: No Hx Stroke: No Hx Asthma: No Hx of COPD: No Hx Cardiac Disorders: No Hx Congestive Heart Failure: No Hx Pacemaker: No Hx Hypertension: Yes Hx Diabetes: No Hx Renal Disease: Yes - kidney stents, left Hx Cancer: Yes - Cervical Hx MRSA: Yes - 2016 - Vaccination History Hx Tetanus, Diphtheria Vaccination: No Hx Influenza Vaccination: No Hx Pneumococcal Vaccination: No - Social History Hx Tobacco Use: Yes Hx Chewing Tobacco Use: No Hx Alcohol Use: No Hx Substance Use: No Hx Substance Use Treatment: No Hx Depression: Yes Hx Physical Abuse: No Hx Emotional Abuse: No - Female History Patient : No - Triage Comment ED Triage Comment: Pt states she has right leg pain and swelling that started a few days ago and the pain has gotten out of control. Family Medical History - Family History Father Living Status: Still Living Hx Family Hypertension: Yes - brother Hx Family Stroke: Yes - brother Hx Family Cancer: Yes - mom- cervical cancer Mother Family History: No Known Living Status: Still Living Hx Family;Other: Pt is adopted Physical Exam - Physical Exam General Appearance: Alert, Obvious distress Eye Exam: bilateral normal Ears, Nose, Throat: hearing grossly normal, normal ENT inspection, normal pharynx - the patient does of course have hair loss from the chemotherapy. Neck: non-tender, full range of motion, supple, normal inspection Respiratory: chest non-tender, lungs clear, normal breath sounds, no respiratory distress, no accessory muscle use Cardiovascular/Chest: normal peripheral pulses, no edema, tachycardia - she does have known baseline tachycardia Peripheral Pulses: radial,right: 2+, radial,left: 2+, dorsalis pedis,right: 2+, dorsalis pedis,left: 2+, posterior tibialis,right: 2+, posterior tibialis,left: 2+ Gastrointestinal/Abdominal: soft - see history of present illness. Colostomy and urostomy bags are present and in place. The patient does have significant discomfort to palpation above the medial aspect of the right inguinal ligament. Rectal Exam: deferred Back Exam: normal inspection, no CVA tenderness, no vertebral tenderness Extremity: normal range of motion, no calf tenderness, normal capillary refill, swelling - of the right lower extremity in general. Range of motion is preserved. She does appear to be neurovascularly preserved in the leg. Neurologic: layout inspector II-XII nml as tested, alert, oriented x 3 Skin Exam: normal color Comments: Vital Signs - 24 hr 11/16/16 11/16/16 11/16/16 00:14 01:26 02:04 Temperature 98.1 F 98.3 F Pulse Rate [ 115 H 106 H monitor] Respiratory 16 14 Rate Blood Pressure 118/86 111/80 [Left Arm] O2 Sat by Pulse 97 98 Oximetry Progress - Progress Progress: 11/16/16 02:47 the patient is a 36-year-old female presenting secondary to uncontrolled right lower extremity pain that probably has to do with a mass that appears to be growing in the pre-pubic area on the right probably providing compression to her lymphatic system to the right leg and possibly the nerves running to her right leg. The patient has responded fairly well to Toradol and a small dose of Dilaudid. The patient may need to have her oral chronic pain medications increased to meet the needs currently. The patient will be admitted for pain management. If control can be obtained, then she can follow up with her oncologist on Thursday for continuation of her oncological care. The patient does have some pancytopenia but this does actually appear to be improved compared to last week. - Results/Orders Results/Orders: Laboratory Tests 11/16/16 11/16/16 11/16/16 01:00 01:00 01:00 WBC 2.3 L* RBC 2.86 L Hgb 9.1 L Hct 27.5 L MCV 96.2 MCH 31.8 H MCHC 33.2 RDW 20.2 H Plt Count 94 L MPV 7.0 L Absolute Neuts (auto) Not Reportable Absolute Lymphs (auto) Not Reportable Absolute Monos (auto) Not Reportable Absolute Eos (auto) Not Reportable Neutrophils % Not Reportable Neutrophils % (Manual) 58.0 Lymphocytes % Not Reportable Lymphocytes % (Manual) 25.0 Monocytes % Not Reportable Monocytes % (Manual) 13.0 Eosinophils % Not Reportable Basophils % Not Reportable Eosinophils 4.0 Platelet Estimate Decreased Anisocytosis 2+ Sodium 138 Potassium 3.7 Chloride 103 Carbon Dioxide 28 Anion Gap 10.7 L BUN 20 H Creatinine 0.86 BUN/Creatinine Ratio 23.3 H Random Glucose 106 H Serum Osmolality 278.7 Lactic Acid 0.9 Calcium 8.9 Total Bilirubin 0.4 AST 13 ALT 13 Alkaline Phosphatase 104 Serum Total Protein 8.3 H Albumin 3.3 Globulin 5.0 H Albumin/Globulin Ratio 0.7 L x-ray of the pelvis, femur and tib-fib on the right show no evidence of obvious lytic lesions. Departure - Departure Clinical Impression: Uncontrolled pain, Cervical cancer Disposition: Admit Patient Referrals: Jessie Carroll MD [Primary Care Provider] - 1-2 Weeks Home Medications: Ambulatory Orders Morphine Sulfate [Morphine Sulfate ER] 30 mg PO BID 10/03/15 Alprazolam [Alprazolam ER] 0.5 mg PO Q6HRS PRN 06/26/16 Gabapentin [Neurontin] 300 mg PO TID 06/26/16 HYDROcodone 10MG/APAP 325MG [[place] 10/325] 1 tab PO Q6HRS PRN 06/26/16 Cyclobenzaprine HCl [Flexeril] 5 mg PO TID PRN 11/05/16 Duloxetine HCl [Cymbalta] 60 mg PO DAILY 11/07/16 Azithromycin [Zithromax] 500 mg PO DAILY #7 tab 11/08/16 Bifidobacterium Infantis [Align] 4 mg PO BEDTIME 11/08/16 tiZANidine [Zanaflex] 4 mg PO Q8H PRN #20 tab 11/08/16 Decision To Admit - Decistion To Admit Decision to Admit Reason: Medical Nature Decision to Admit Date: 11/16/16 Decision to Admit Time: 02:49
[2016-11-16] MEDS ORDERED: ONDANSETRON INJ 4 MG/2 ML VIAL IV PRN (03:01)
[2016-11-16] MEDS ORDERED: MAGNESIUM HYDROXIDE 30 ML UD PO PRN (03:01)
[2016-11-16] MEDS ORDERED: HYDROmorphone HCL INJ 2 MG/ML VIAL IV PRN (03:08)
[2016-11-16] MEDS ORDERED: IV SET AND CAP CHANGE INJ INJ SCH (03:30)
--- NOTE | 2016-11-16 03:42 | HP ---
HISTORY OF PRESENT ILLNESS: This 36 year-old female is placed in the hospital for overnight observation because of worsening and intractable pain. The pain is primarily located in her right lower extremity extending from the ankle up the entirety of the right lower extremity, especially on the medial aspect up towards her right hip region. It is aggravated by weightbearing but is also present with no weightbearing in process. She admits to having had increased activity recently with moving and trying to clean her parents' home with the deadline being this particular weekend that she is placed in the hospital. Of note is that she is on morphine 30 mg twice a day under the supervision of Dr. Carroll, oncologist in [place], phone number [phone]. She has been receiving morphine 30 mg twice a day as well as [place] 10 on an as needed basis for breakthrough pain. With her increased activity leading up to this weekend and increased tendency to pain because of it, and the fact that she has run out of her breakthrough pain being [place] 10 mg for the last 2 weeks has resulted in the pain getting intolerable and unbearable. She came to the Emergency Room and was given some Toradol without significant relief and then was given some Dilaudid which helped the pain but significantly sedated her to the point that she was unable to walk or fully respond. She has rested apparently overnight and now is still quite drowsy and continued management of the pain process will continue during the day today and her night this evening. The patient has had a significant surgery with removal of metastatic ovarian cancer within her pelvis and has required the removal of her bladder and part of her colon with a urostomy and colostomy placed as a result of this significant ovarian cancer. She has completed chemotherapy recently as well. History of pancytopenia as a result of the chemotherapy. Her appetite has been fair. No significant weight loss. She has been in the Emergency Room twice since her recent hospitalization between 11/05 and 11/08/16 for a pyelonephritis or a urinary tract infection treated with cephalosporins. She is scheduled to see Dr. Carroll, oncologist, the first of this next week. Unfortunately she does not know the exact time of that appointment and no one is in the office this weekend to verify, and so it will be verified and/or rescheduled tomorrow. Renewal of her ongoing [place] and morphine will be done at that time. The patient is placed in the hospital for pain control as well as reevaluation of her general chemistry and metabolic status. Special attention to avoid falls. PAST MEDICAL HISTORY: 1. Cervical cancer post significant pelvic surgery as well as chemotherapy. PAST SURGICAL HISTORY: 1. Port placement by Dr. Espinoza. 2. Tubal ligation. 3. Stent of the kidney due to blockage of the ureter from the cervical cancer mass. 4. Pelvic excavation with bladder removal and half of her colon removed with urostomy and colostomy. 5. Hysterectomy. CURRENT MEDICATIONS: Please refer to nurses' notes for a list of verified home medications. ALLERGIES: NONE KNOWN. SOCIAL HISTORY: The patient has 3 children and is currently . She does not smoke. REVIEW OF SYSTEMS: No significant weight loss, fever or chills. HEENT: Hearing and vision is fairly normal. LUNGS: Mild shortness of breath upon exertion. CARDIOVASCULAR: No significant chest pains or dysrhythmias. ABDOMEN: Somewhat tender with colostomy and urostomy present. EXTREMITIES: Some discomfort upon range of motion of the right lower extremity with noticeable increased circumference on the right leg and thigh compared to the left. This may be related to lymphedema from the significant pelvic surgery that she has already experienced. No definite evidence of a DVT at this time. NEUROLOGIC: No significant focal weakness but generally quite weak. PHYSICAL EXAMINATION: VITAL SIGNS: Afebrile, pulse 86, blood pressure 97/69, pulse oximetry 100% on room air. Weight is 69.9 kilos. GENERAL: The patient otherwise is awake, but her eyelids are drooping and she is noticeably somewhat obtunded, somewhat sleepy-headed. Still complaining of a 5/10 pain even after the Dilaudid had been given. Continued pain control measures to continue. CHEST: Lungs have diminished breath sounds. CARDIOVASCULAR: Heart tones are regular. ABDOMEN: Has fairly good bowel tones though slightly decreased. No significant masses but generally tender, especially in the pelvic regions. EXTREMITIES: Right lower extremity noticeably larger yet coloration is normal compared to the left lower extremity. Some discomfort upon range of motion is evident, especially up into the hip and pelvic regions on the right compared to the left. LABORATORY: White count is 2,300 with 58% neutrophils, hemoglobin 9.1 with hyperchromic normocytic indices and platelets 94,000 which is higher than it has been recently. Chemistry shows potassium 3.7, BUN 20, creatinine 0.86, glucose 106, lactic acid 0.9. Liver enzymes normal with albumin 3.3. Urinalysis shows a trace of pyuria, rare bacteria and urine culture is pending. The last urine culture was positive for Klebsiella planticola on 11/05/16. X-rays of the tibia, fibula, pelvis and femur were within normal limits in the Emergency Room. ASSESSMENT: 1. Significant advanced ovarian carcinoma requiring extensive surgery as well as chemotherapy for its ongoing treatment. 2. Persistent pancytopenia probably as a result of the recent chemotherapy recently completed. 3. Significant and intolerable and intractable pain in the right lower extremity from the right hip down the leg towards the ankle, especially in the medial thigh possibly related to sacral thickening suggesting the possibility of tumor recurrence versus radiculopathy versus neuropathic pain. 4. Worsening right lower extremity pain possibly aggravated by being without her breakthrough pain of [place] 10 mg for the last 2 weeks. PLAN: Dr. Carroll, oncologist clinic, will be contacted in the morning at to verify when the patient can be seen in the clinic for specific followup. Further investigation and workup, and speciality input will be beneficial because of the persistence and worsening of the right lower extremity pain. The patient will continue with nutrition. Increase activity level today. Cutting back on her medicines and continue on morphine 30 mg every 12 hours with [place] 10 mg breakthrough pain as needed. Special attention to avoid falls and followup suggested with the clinic is very important. #[id number] MTDD
[2016-11-16] MEDS: SODIUM CHLORIDE 0.9% (FLUSH) 10 ML SYG IV PRN ×3 (04:20→22:29)
[2016-11-16] MEDS: KCL 20 MEQ/NS 1,000 ML IVS PRN ×2 (04:21→17:04)
[2016-11-16] MEDS: OMEPRAZOLE CAP 20 MG CAP PO SCH (06:03)
[2016-11-16] MEDS: KETOROLAC TROMETHAMINE INJ 30 MG/ML VIAL IV SCH ×3 (08:02→20:23)
[2016-11-16] MEDS ORDERED: MORPHINE ER 15 MG TAB PO SCH ×2 (09:00→12:08)
[2016-11-16] MEDS: GABAPENTIN 300 MG CAP PO SCH ×3 (09:03→21:01)
[2016-11-16] MEDS: HYDROcodone 10MG/APAP 325MG 1 EA TAB PO PRN (14:15)
[2016-11-16] MEDS ORDERED: MORPHINE ER 30 MG TAB ONE (19:46)
[2016-11-16] MEDS: MORPHINE ER 30 MG TAB PO SCH (21:01)
[2016-11-16] MEDS ORDERED: DULoxetine HCL 30 MG CAP PO ONE (22:21)
[2016-11-16] MEDS ORDERED: CYCLOBENZAPRINE HCL 5 MG TAB ONE (22:23)
[2016-11-16] MEDS: DULoxetine HCL 30 MG CAP PO SCH (22:33)
[2016-11-16] MEDS: CYCLOBENZAPRINE HCL 5 MG TAB PO SCH (22:38)
[2016-11-17] MEDS: SODIUM CHLORIDE 0.9% (FLUSH) 10 ML SYG IV PRN (02:05)
[2016-11-17] MEDS: KETOROLAC TROMETHAMINE INJ 30 MG/ML VIAL IV SCH ×2 (02:05→08:14)
[2016-11-17] MEDS: KCL 20 MEQ/NS 1,000 ML IVS PRN (05:16)
[2016-11-17] MEDS: OMEPRAZOLE CAP 20 MG CAP PO SCH (06:12)
[2016-11-17] MEDS ORDERED: ALPRAZolam 0.5 MG TAB PO PRN (07:12)
[2016-11-17] MEDS: GABAPENTIN 300 MG CAP PO SCH (08:47)
[2016-11-17] MEDS: DULoxetine HCL 30 MG CAP PO SCH (08:47)
[2016-11-17] MEDS: MORPHINE ER 30 MG TAB PO SCH (08:48)
[2016-11-17] MEDS: CYCLOBENZAPRINE HCL 5 MG TAB PO SCH (08:48)
[2016-11-17 10:04] VITALS: BP 114/80; TEMP 97.4; O2SAT 99
[2016-11-17] MEDS: HYDROcodone 10MG/APAP 325MG 1 EA TAB PO PRN (13:01)
--- NOTE | 2016-11-17 13:37 | DS ---
DISCHARGE DIAGNOSIS: 1. Significant advanced ovarian carcinoma, having required extensive pelvic surgery as well as chemotherapy, now completed, for ongoing treatment. 2. Persistent pancytopenia after completing chemotherapy course treatment. 3. Significant intolerable and intractable pain in the right lower extremity from the right hip down to the ankle, probably secondary to residual ovarian carcinoma within the pelvis noted on CT scan in front of the sacrum and requiring further oncological evaluation and management considering radiation therapy if it will be of benefit, etc. 4. Significant lymphedema with swelling, right lower extremity, probably secondary to the extensive surgery in the pelvis required to treat and remove as much ovarian carcinoma as possible. HISTORY OF PRESENT ILLNESS: This 36-year-old female was admitted to the hospital from the Emergency Room because of worsening and intractable pain in the right lower extremity. IT is of note that she is being followed by oncologist, Dr. Carroll, in [place]. She had an appointment this last Thursday, or two days before she was admitted to the hospital, with Dr. Carroll, but missed it because her child was ill. She apparently is on MS Contin 30 mg twice daily and hydrocodone 10 mg as [place] up to twice a day as needed for breakthrough pain. She ran out of the [place] approximately two weeks ago and has been very active in moving from one residence to another and has aggravated and exacerbated significant pain process in the right lower extremity. She was admitted to the hospital for pain control and for further evaluation, management and stabilization. She was subsequently started on analgesic program similar to what she was on before and it seemed to show some improvement to the point that she was ready for discharge with outpatient followup on the day of discharge. LABORATORY: White count was 2,300, decreasing to 1,700 with 59% neutrophils. Hemoglobin dropped from 9.1 to 8.8 and platelets from 94,000 to 81,000. This is close to her usual baseline after significant chemotherapy response in her bone marrow has resulted in persistence of the pancytopenia. Chemistries showed potassium 3.9, BUN 18, creatinine 0.82, glucose 100. Liver enzymes normal. Albumin 2.6. Urinalysis did show some pyuria and some dipstick blood with rare bacteria. Urine culture was negative, as also is the MRSA surveillance nasal culture. X-rays of the tibia, fibula, pelvis and femur were all reported as normal with no acute fractures evident. She has recently had a CT scan of the abdomen and pelvis that did show some fairly significant thickening in the pre-sacral region which may be contributing to some of this neuropathic or radicular pain that she is describing in an intolerable fashion. Close followup and further treatment options may be of assistance. HOSPITAL COURSE: The patient was feeling improved after ongoing re-introduction to a pain control program was instituted. The patient was soon able to ambulate. Though still having discomfort in her leg, it was more tolerable. PLAN: The patient is discharged home with close outpatient followup with Dr. Carroll's office on 11/28/16, at 9 AM. She is given some specific prescriptions for hydrocodone 10 mg half to 1 b.i.d. as needed for breakthrough pain, #25, as well as MS Contin 30 mg to be taken b.i.d., #25, to last until that clinic appointment. This was given to her because it would be difficult for her to go into [place] at this time because of her family situation as her pain program is continuing. Special emphasis upon good nutrition, stay active, breathe deeply, no falling. She is to take results of the x-rays on CD to Dr. Carroll's office for review and followup suggested and return if not improving. #[id number]
== END 2016-11-17 13:11 | disposition home or self-care (01) ==
LOC: ER 23:53 → MS 11-16 03:41
PROVIDERS: ADMIT Emergency Medicine; ATTEND Emergency Medicine
DX: C56.9 Malignant neoplasm of unspecified ovary (principal); D61.810 Antineoplastic chemotherapy induced pancytopenia; T45.1X5A Adverse effect of antineoplastic and immunosuppressive drugs, initial encounter; G89.3 Neoplasm related pain (acute) (chronic); M25.551 Pain in right hip; M79.651 Pain in right thigh; M25.561 Pain in right knee; M79.661 Pain in right lower leg; M25.571 Pain in right ankle and joints of right foot; I97.89 Other postprocedural complications and disorders of the circulatory system, not elsewhere classified; I89.0 Lymphedema, not elsewhere classified; N39.0 Urinary tract infection, site not specified; Z92.21 Personal history of antineoplastic chemotherapy; Z92.3 Personal history of irradiation; Z93.3 Colostomy status; Z93.6 Other artificial openings of urinary tract status; Z79.891 Long term (current) use of opiate analgesic; Z79.899 Other long term (current) drug therapy; Z90.710 Acquired absence of both cervix and uterus; Y92.009 Unspecified place in unspecified non-institutional (private) residence as the place of occurrence of the external cause
CPT/HCPCS: 36415 ×2; 72170; 73551; 73590; 80053 ×2; 81001; 83605; 85025 ×2; 87070; 87086; 94760 ×3; 96372; 96374; 96375; 96376 ×2; 99284; G0378; J1170 ×2; J1885 ×6; J3480 ×3

== ENCOUNTER 2016-11-19 21:56 | Emergency (ER) | payer OTHER ==
[2016-11-19] MEDS ORDERED: HYDROmorphone HCL INJ 2 MG/ML VIAL IM SCH (22:30)
--- NOTE | 2016-11-19 22:47 | ED.PDOC ---
History of Present Illness - General Chief Complaint: Lower Extremity Injury Stated Complaint: rt leg pain Time Seen by Provider: 11/19/16 22:01 Source: patient Exam Limitations: no limitations - History of Present Illness Initial Comments: the patient is a 36-year-old female with extensive cervical cancer that was undergone radical surgery and now has colostomy and urostomy is in place. She is presenting due to persistent pain in her right lower extremity that appears to be due to lymphedema and congestion related to her surgeries as well as a persistent mass in the right side of the pelvis. The patient has follow-up with her oncologistin the coming week to address this further. She has continued to have increasing swelling in the right lower extremity without the use of any additional compression. The patient was written for increasing opiate medications bythe record label intern here proximally 5 days ago which has helped some. The patient has run out of her colostomy and urostomy bags. This is one of the primary reason that she showed up here Today as well as of course the persistent pain to the right lower extremity. no fever. No new symptoms. the patient has had lower extremity Dopplers within the last month demonstrating no DVT as the cause of swelling Timing/Duration: unsure, constant, getting worse Severity: moderate Improving Factors: nothing Worsening Factors: movement Associated Symptoms: malaise Allergies/Adverse Reactions: Allergies NO KNOWN ALLERGY Allergy (Verified 11/12/16 20:28) Home Medications: Ambulatory Orders Alprazolam [Alprazolam ER] 0.5 mg PO Q6HRS PRN 06/26/16 Gabapentin [Neurontin] 300 mg PO TID 06/26/16 Cyclobenzaprine HCl [Flexeril] 5 mg PO TID PRN 11/05/16 Duloxetine HCl [Cymbalta] 60 mg PO DAILY 11/07/16 Azithromycin [Zithromax] 500 mg PO DAILY #7 tab 11/08/16 Bifidobacterium Infantis [Align] 4 mg PO BEDTIME 11/08/16 tiZANidine [Zanaflex] 4 mg PO Q8H PRN #20 tab 11/08/16 HYDROcodone 10MG/APAP 325MG [[place] 10/325] 1 tab PO Q8HRS PRN #25 11/17/16 Morphine Sulfate [Morphine Sulfate ER] 30 mg PO BID #25 11/17/16 Review of Systems - Review of Systems Review of Systems: 11/19/16 22:47 for any change from her baseline Constitutional: States: malaise EENTM: States: no symptoms reported Respiratory: States: no symptoms reported Cardiology: States: no symptoms reported Gastrointestinal/Abdominal: States: abdominal pain - hronic Genitourinary: States: see HPI Musculoskeletal: States: see HPI Skin: States: no symptoms reported Neurological: States: see HPI Endocrine: States: no symptoms reported All other Systems: No Change from Baseline Past Medical History (General) - Patient Medical History Hx Seizures: No Hx Stroke: No Hx Asthma: No Hx of COPD: No Hx Cardiac Disorders: No Hx Congestive Heart Failure: No Hx Pacemaker: No Hx Hypertension: Yes Hx Diabetes: No Hx Renal Disease: Yes - kidney stents, left Hx Cancer: Yes - cervical Hx MRSA: Yes - 2016 Surgical History: cancer surgery, other - Vaccination History Hx Tetanus, Diphtheria Vaccination: No Hx Influenza Vaccination: No Hx Pneumococcal Vaccination: No - Social History Hx Tobacco Use: Yes Hx Chewing Tobacco Use: No Hx Alcohol Use: No Hx Substance Use: No Hx Substance Use Treatment: No Hx Depression: Yes Hx Physical Abuse: No Hx Emotional Abuse: No - Female History Patient : No Family Medical History - Family History Father Living Status: Still Living Hx Family Hypertension: Yes - brother Hx Family Stroke: Yes - brother Hx Family Cancer: Yes - mom- cervical cancer Mother Family History: No Known Living Status: Still Living Hx Family;Other: Pt is adopted Physical Exam - Physical Exam General Appearance: Alert, Comfortable, No apparent distress Eye Exam: bilateral normal Ears, Nose, Throat: hearing grossly normal, normal ENT inspection - the patient of course has hair loss from her chemotherapy, normal pharynx Neck: non-tender, full range of motion, supple Respiratory: chest non-tender, lungs clear, normal breath sounds, no respiratory distress, no accessory muscle use Cardiovascular/Chest: normal peripheral pulses, regular rate, rhythm, no edema Peripheral Pulses: radial,right: 2+, radial,left: 2+, dorsalis pedis,right: 2+, dorsalis pedis,left: 2+, posterior tibialis,right: 2+, posterior tibialis,left: 2+ Gastrointestinal/Abdominal: other - hronic lower abdominal discomfort palpation. Urostomy and colostomy's are covered with 4 x 4's and tape. Rectal Exam: deferred Back Exam: normal inspection, no CVA tenderness Extremity: normal range of motion, normal capillary refill, other - the patient has 3+ edema to the right lower extremity and is uncomfortable to palpation all over due to the edema Neurologic: weed control inspector II-XII nml as tested, alert, normal mood/affect, oriented x 3 Skin Exam: normal color Comments: Vital Signs - 24 hr 11/19/16 22:15 Temperature 99.1 F Pulse Rate [ 109 H left] Respiratory 18 Rate Blood Pressure 98/66 [left] O2 Sat by Pulse 99 Oximetry Progress - Progress Progress: 11/19/16 22:50 the patient is a 36-year-old female presenting due to persistent pain to the right lower extremity that appears to be due to significant edema. We placed Stiven wraps for compression to help reduce tensity on the skin. these need to be adjusted every 6 hours to prevent compression bands. she reports that she does have some compression stockings at home but has not been using them. She can give these a try if she wishes. She needs to keep follow-up with her oncologist to address the background causes of the swelling. She can continue her home pain medications. The patient was given several ostomy bags to use at her diiscretion until her other ones come in tomorrow. ER warnings were given. Keep follow-up with primary care doctor as well. Departure - Departure Clinical Impression: Lymphedema, Inadequate pain control Disposition: Discharge to Home or Self Care Condition: Fair Departure Forms: ED Discharge - Pt. Copy, Patient Portal Self Enrollment Instructions: DI for Lymphedema Diet: regular diet Activity: increase activity as tolerated Referrals: Jessie Carroll MD [Primary Care Provider] - 1-2 Weeks Home Medications: Ambulatory Orders Alprazolam [Alprazolam ER] 0.5 mg PO Q6HRS PRN 06/26/16 Gabapentin [Neurontin] 300 mg PO TID 06/26/16 Cyclobenzaprine HCl [Flexeril] 5 mg PO TID PRN 11/05/16 Duloxetine HCl [Cymbalta] 60 mg PO DAILY 11/07/16 Azithromycin [Zithromax] 500 mg PO DAILY #7 tab 11/08/16 Bifidobacterium Infantis [Align] 4 mg PO BEDTIME 11/08/16 tiZANidine [Zanaflex] 4 mg PO Q8H PRN #20 tab 11/08/16 HYDROcodone 10MG/APAP 325MG [[place] 10/325] 1 tab PO Q8HRS PRN #25 11/17/16 Morphine Sulfate [Morphine Sulfate ER] 30 mg PO BID #25 11/17/16 Additional Instructions: the patient is a 36-year-old female presenting due to persistent pain to the right lower extremity that appears to be due to significant edema. We placed Stiven wraps for compression to help reduce tensity on the skin. these need to be adjusted every 6 hours to prevent compression bands. she reports that she does have some compression stockings at home but has not been using them. She can give these a try if she wishes. She needs to keep follow-up with her oncologist to address the background causes of the swelling. She can continue her home pain medications. The patient was given several ostomy bags to use at her diiscretion until her other ones come in tomorrow. ER warnings were given. Keep follow-up with primary care doctor as well.
[2016-11-19 23:10] VITALS: BP 105/73; TEMP 98.7; O2SAT 96
== END 2016-11-19 23:23 | disposition home or self-care (01) ==
LOC: ER 21:56
DX: I89.0 Lymphedema, not elsewhere classified (principal); C53.9 Malignant neoplasm of cervix uteri, unspecified; Z93.3 Colostomy status; Z93.6 Other artificial openings of urinary tract status; Z79.899 Other long term (current) drug therapy; Z87.891 Personal history of nicotine dependence

== ENCOUNTER 2016-11-23 08:00 | Emergency (ER) | payer OTHER ==
[2016-11-23 08:09] VITALS: TEMP 98.8
[2016-11-23] MEDS ORDERED: KETOROLAC TROMETHAMINE INJ 30 MG/ML VIAL IM ONE (08:33)
--- NOTE | 2016-11-23 11:21 | ED.PDOC ---
History of Present Illness - General Chief Complaint: General Stated Complaint: right leg pain Time Seen by Provider: 11/23/16 08:27 Source: patient Exam Limitations: no limitations - History of Present Illness Initial Comments: Patient presents with acute on chronic right leg pain due to swelling. She has cervical cancer and had pelvic surgery removing several structures. She was told the swelling was a result of scar tissue buildup. She has had LE dopplers with no evidence of DVT. She believes that the exacerbation of the pain is from using stairs at her [facility]. She took 3 x 30 mg morphine tablets and presents somewhat sleepy. Pain is along the entire right leg. No other complaints. Timing/Duration: 4-6 hours Severity: moderate Improving Factors: nothing Worsening Factors: nothing Associated Symptoms: denies symptoms Allergies/Adverse Reactions: Allergies NO KNOWN ALLERGY Allergy (Verified 11/12/16 20:28) Home Medications: Ambulatory Orders Alprazolam [Alprazolam ER] 0.5 mg PO Q6HRS PRN 06/26/16 Gabapentin [Neurontin] 300 mg PO TID 06/26/16 Cyclobenzaprine HCl [Flexeril] 5 mg PO TID PRN 11/05/16 Duloxetine HCl [Cymbalta] 60 mg PO DAILY 11/07/16 Azithromycin [Zithromax] 500 mg PO DAILY #7 tab 11/08/16 Bifidobacterium Infantis [Align] 4 mg PO BEDTIME 11/08/16 tiZANidine [Zanaflex] 4 mg PO Q8H PRN #20 tab 11/08/16 HYDROcodone 10MG/APAP 325MG [[place] 10/325] 1 tab PO Q8HRS PRN #25 11/17/16 Morphine Sulfate [Morphine Sulfate ER] 30 mg PO BID #25 11/17/16 Ketorolac Tromethamine [Toradol Tabs] 10 mg PO Q6HR #16 tab 11/23/16 Review of Systems - Review of Systems Constitutional: States: no symptoms reported EENTM: States: no symptoms reported Respiratory: States: no symptoms reported Cardiology: States: no symptoms reported Gastrointestinal/Abdominal: States: no symptoms reported Genitourinary: States: no symptoms reported Musculoskeletal: States: see HPI Skin: States: no symptoms reported Neurological: States: no symptoms reported Endocrine: States: no symptoms reported Hematologic/Lymphatic: States: no symptoms reported Past Medical History (General) - Patient Medical History Hx Seizures: No Hx Stroke: No Hx Asthma: No Hx of COPD: No Hx Cardiac Disorders: No Hx Congestive Heart Failure: No Hx Pacemaker: No Hx Hypertension: Yes Hx Diabetes: No Hx Renal Disease: Yes - kidney stents, left Hx Cancer: Yes - cervical Hx MRSA: Yes - 2016 Surgical History: cancer surgery - Vaccination History Hx Tetanus, Diphtheria Vaccination: No Hx Influenza Vaccination: No Hx Pneumococcal Vaccination: No - Social History Hx Tobacco Use: Yes Hx Chewing Tobacco Use: No Hx Alcohol Use: No Hx Substance Use: No Hx Substance Use Treatment: No Hx Depression: Yes Hx Physical Abuse: No Hx Emotional Abuse: No - Female History Patient : No Family Medical History - Family History Father Living Status: Still Living Hx Family Hypertension: Yes - brother Hx Family Stroke: Yes - brother Hx Family Cancer: Yes - mom- cervical cancer Mother Family History: No Known Living Status: Still Living Hx Family;Other: Pt is adopted Physical Exam - Physical Exam General Appearance: Alert Respiratory: lungs clear Cardiovascular/Chest: regular rate, rhythm Gastrointestinal/Abdominal: normal bowel sounds, non tender, soft Extremity: other - Right leg is edematous, NT, from the foot to the hip. No erythema. Left leg has a normal exam. Progress - Progress Progress: 11/23/16 11:22 Patient was put on monitors out of concern for her large morphine intake this morning. She did well and respirations and hear rate stayed wnl. She was given toradol 30 mg IV x one. She was awake and alert at time of discharge. Given RX for toradol 10 mg po q6 hours prn. She is going to her oncologist tomorrow. We reviewed care of the swelling in the right leg which included compression stocking, SKY wrapping, and elevation. Departure - Departure Clinical Impression: Lower extremity edema Disposition: Discharge to Home or Self Care Condition: Good Departure Forms: ED Discharge - Pt. Copy, Patient Portal Self Enrollment Diet: resume usual diet Activity: increase activity as tolerated Referrals: Jessie Carroll MD [Primary Care Provider] - 1-2 Weeks Prescriptions: Ketorolac Tromethamine [Toradol Tabs] 10 mg PO Q6HR #16 tab Home Medications: Ambulatory Orders Alprazolam [Alprazolam ER] 0.5 mg PO Q6HRS PRN 06/26/16 Gabapentin [Neurontin] 300 mg PO TID 06/26/16 Cyclobenzaprine HCl [Flexeril] 5 mg PO TID PRN 11/05/16 Duloxetine HCl [Cymbalta] 60 mg PO DAILY 11/07/16 Azithromycin [Zithromax] 500 mg PO DAILY #7 tab 11/08/16 Bifidobacterium Infantis [Align] 4 mg PO BEDTIME 11/08/16 tiZANidine [Zanaflex] 4 mg PO Q8H PRN #20 tab 11/08/16 HYDROcodone 10MG/APAP 325MG [[place] 10/325] 1 tab PO Q8HRS PRN #25 11/17/16 Morphine Sulfate [Morphine Sulfate ER] 30 mg PO BID #25 11/17/16 Ketorolac Tromethamine [Toradol Tabs] 10 mg PO Q6HR #16 tab 11/23/16 Additional Instructions: See your oncologist tomorrow as planned.
[2016-11-23 11:34] VITALS: BP 105/62; O2SAT 97
== END 2016-11-23 11:34 | disposition home or self-care (01) ==
LOC: ER 08:00
DX: R60.0 Localized edema (principal); I10 Essential (primary) hypertension; F32.9 Major depressive disorder, single episode, unspecified; Z86.14 Personal history of Methicillin resistant Staphylococcus aureus infection; Z79.899 Other long term (current) drug therapy; Z85.41 Personal history of malignant neoplasm of cervix uteri; Z87.891 Personal history of nicotine dependence

== ENCOUNTER 2016-11-25 20:40 | Emergency (ER) | payer OTHER ==
[2016-11-25] MEDS ORDERED: MORPHINE SULFATE INJ 10 MG/ML VIAL IV ONE ×2 (21:40→23:15)
--- NOTE | 2016-11-25 22:52 | ED.PDOC ---
History of Present Illness - General Chief Complaint: General Stated Complaint: uncontrolled pain Time Seen by Provider: 11/25/16 21:31 Source: patient Exam Limitations: no limitations - History of Present Illness Initial Comments: Patient presents with increasing pain in her right lower extremity. She has been to the E.R. here several times for the same. She has been told that the pain is due to edema from scarring after radical surgery to remove metastatic cervical CA. She has had several dopplers that did not show DVT. She says that the leg is throbbing and feels like it has "its own heartbeat". She has run out of her pain medications and does not have an appointment with her oncologist for three more days. No other complaints. Timing/Duration: constant, getting worse Severity: severe Improving Factors: nothing Worsening Factors: movement Associated Symptoms: denies symptoms Allergies/Adverse Reactions: Allergies NO KNOWN ALLERGY Allergy (Verified 11/12/16 20:28) Home Medications: Ambulatory Orders Alprazolam [Alprazolam ER] 0.5 mg PO Q6HRS PRN 06/26/16 Gabapentin [Neurontin] 300 mg PO TID 06/26/16 Cyclobenzaprine HCl [Flexeril] 5 mg PO TID PRN 11/05/16 Duloxetine HCl [Cymbalta] 60 mg PO DAILY 11/07/16 Azithromycin [Zithromax] 500 mg PO DAILY #7 tab 11/08/16 Bifidobacterium Infantis [Align] 4 mg PO BEDTIME 11/08/16 tiZANidine [Zanaflex] 4 mg PO Q8H PRN #20 tab 11/08/16 HYDROcodone 10MG/APAP 325MG [[place] 10/325] 1 tab PO Q8HRS PRN #25 11/17/16 Morphine Sulfate [Morphine Sulfate ER] 30 mg PO BID #25 11/17/16 Ketorolac Tromethamine [Toradol Tabs] 10 mg PO Q6HR #16 tab 11/23/16 Review of Systems - Review of Systems Constitutional: States: no symptoms reported EENTM: States: no symptoms reported Respiratory: States: no symptoms reported Cardiology: States: no symptoms reported Gastrointestinal/Abdominal: States: no symptoms reported Genitourinary: States: no symptoms reported Musculoskeletal: States: see HPI Skin: States: no symptoms reported Neurological: States: no symptoms reported Endocrine: States: no symptoms reported Hematologic/Lymphatic: States: no symptoms reported Past Medical History (General) - Patient Medical History Hx Seizures: No Hx Stroke: No Hx Asthma: No Hx of COPD: No Hx Cardiac Disorders: No Hx Congestive Heart Failure: No Hx Pacemaker: No Hx Hypertension: Yes Hx Diabetes: No Hx Renal Disease: Yes - kidney stents, left Hx Cancer: Yes - cervical cancer Hx MRSA: Yes - 2016 Surgical History: cancer surgery, colectomy, Hysterectomy - Vaccination History Hx Tetanus, Diphtheria Vaccination: No Hx Influenza Vaccination: No Hx Pneumococcal Vaccination: No - Social History Hx Tobacco Use: Yes Hx Chewing Tobacco Use: No Hx Alcohol Use: No Hx Substance Use: No Hx Substance Use Treatment: No Hx Depression: Yes Hx Physical Abuse: No Hx Emotional Abuse: No - Female History Patient : No - Triage Comment ED Triage Comment: Pt c/o uncontrolled pain due to her cervical cancer. C/o pain to right lower leg. Family Medical History - Family History Father Living Status: Still Living Hx Family Hypertension: Yes - brother Hx Family Stroke: Yes - brother Hx Family Cancer: Yes - mom- cervical cancer Mother Family History: No Known Living Status: Still Living Hx Family;Other: Pt is adopted Physical Exam - Physical Exam General Appearance: Alert Respiratory: lungs clear Cardiovascular/Chest: regular rate, rhythm Gastrointestinal/Abdominal: normal bowel sounds, non tender, soft Extremity: swelling - 3+ lower extremity edema. Non-pitting. TTP. No erythema. No palpable venous cords. Progress - Progress Progress: 11/25/16 22:53 D-dimer 704 platelets 172 I called her oncologist, Dr. Waterman, who informed me that the patient did have a DVT after her surgery one year ago. She said that she could not anticoagulate the patient because of low platelets secondary to cancer treatment. She suggested that we have the patient receive a lower extremity doppler YASH and further treatment of a DVT by a production cloth cutter if necessary. Patient was transferred to [facility] for the purporse of determining and treating a possible DVT. 11/25/16 22:56 Departure - Departure Clinical Impression: Lower extremity edema Disposition: Transfer to Hospital Condition: Good Departure Forms: ED Discharge - Pt. Copy, Patient Portal Self Enrollment Diet: other - NPO Activity: other - as per hospitalist Referrals: Jessie Carroll MD [Primary Care Provider] - 1-2 Weeks Home Medications: Ambulatory Orders Alprazolam [Alprazolam ER] 0.5 mg PO Q6HRS PRN 06/26/16 Gabapentin [Neurontin] 300 mg PO TID 06/26/16 Cyclobenzaprine HCl [Flexeril] 5 mg PO TID PRN 11/05/16 Duloxetine HCl [Cymbalta] 60 mg PO DAILY 11/07/16 Azithromycin [Zithromax] 500 mg PO DAILY #7 tab 11/08/16 Bifidobacterium Infantis [Align] 4 mg PO BEDTIME 11/08/16 tiZANidine [Zanaflex] 4 mg PO Q8H PRN #20 tab 11/08/16 HYDROcodone 10MG/APAP 325MG [[place] 10/325] 1 tab PO Q8HRS PRN #25 11/17/16 Morphine Sulfate [Morphine Sulfate ER] 30 mg PO BID #25 11/17/16 Ketorolac Tromethamine [Toradol Tabs] 10 mg PO Q6HR #16 tab 11/23/16
[2016-11-25 23:30] VITALS: BP 138/90; TEMP 98; O2SAT 95
== END 2016-11-25 23:29 | disposition short-term general hospital (02) ==
LOC: ER 20:40
DX: R60.9 Edema, unspecified (principal); G89.3 Neoplasm related pain (acute) (chronic); M79.661 Pain in right lower leg; C53.9 Malignant neoplasm of cervix uteri, unspecified; F32.9 Major depressive disorder, single episode, unspecified; Z86.718 Personal history of other venous thrombosis and embolism; Z87.891 Personal history of nicotine dependence; Z86.14 Personal history of Methicillin resistant Staphylococcus aureus infection; Z79.899 Other long term (current) drug therapy; Z98.890 Other specified postprocedural states
CPT/HCPCS: 36415; 80048; 80076; 85025; 85379; 96374; 96376; 99285; J2270

== ENCOUNTER 2016-12-01 23:55 | Emergency (ER) | payer OTHER ==
--- NOTE | 2016-12-02 00:15 | ED.PDOC ---
History of Present Illness - General Chief Complaint: Lower Extremity Injury Time Seen by Provider: 12/01/16 23:58 Source: patient Exam Limitations: no limitations - History of Present Illness Initial Comments: the patient is a 36-year-old female presenting to the emergency room secondary to uncontrolled pain in her right lower extremity related to her pelvic cancer The patient had a negative doppler here in October and had apparently also had another ultrasound done elsewhere that was negative around the same time. Last week she received another ultrasound at [facility] that was positive for a DVT in the right lower extremity. She is now on Lovenox injections and the swelling is going down. she is however out of her chronic pain medications including morphine and hydrocodone. She is due to see her oncologist and pain management doctor in 48 hours. she is not having any chest pain or shortness of breath. Occurred: other Pain - Lower Extremity: severe: Right Thigh/Hip Method of Injury: other Improving Factors: immobilization Worsening Factors: movement Allergies/Adverse Reactions: Allergies NO KNOWN ALLERGY Allergy (Verified 11/12/16 20:28) Home Medications: Ambulatory Orders Alprazolam [Alprazolam ER] 0.5 mg PO Q6HRS PRN 06/26/16 Gabapentin [Neurontin] 300 mg PO TID 06/26/16 Cyclobenzaprine HCl [Flexeril] 5 mg PO TID PRN 11/05/16 Duloxetine HCl [Cymbalta] 60 mg PO DAILY 11/07/16 Azithromycin [Zithromax] 500 mg PO DAILY #7 tab 11/08/16 Bifidobacterium Infantis [Align] 4 mg PO BEDTIME 11/08/16 tiZANidine [Zanaflex] 4 mg PO Q8H PRN #20 tab 11/08/16 HYDROcodone 10MG/APAP 325MG [[place] 10/325] 1 tab PO Q8HRS PRN #25 11/17/16 Morphine Sulfate [Morphine Sulfate ER] 30 mg PO BID #25 11/17/16 Ketorolac Tromethamine [Toradol Tabs] 10 mg PO Q6HR #16 tab 11/23/16 Review of Systems - Review of Systems Constitutional: States: malaise EENTM: States: no symptoms reported Respiratory: States: no symptoms reported Cardiology: States: no symptoms reported Gastrointestinal/Abdominal: States: abdominal pain Musculoskeletal: States: see HPI Skin: States: no symptoms reported Neurological: States: anxiety Endocrine: States: no symptoms reported All other Systems: No Change from Baseline Past Medical History (General) - Patient Medical History Hx Seizures: No Hx Stroke: No Hx Asthma: No Hx of COPD: No Hx Cardiac Disorders: No Hx Congestive Heart Failure: No Hx Pacemaker: No Hx Hypertension: Yes Hx Diabetes: No Hx Renal Disease: Yes - kidney stents, left Hx Cancer: Yes - cervical cancer Hx MRSA: Yes - 2016 - Vaccination History Hx Tetanus, Diphtheria Vaccination: No Hx Influenza Vaccination: No Hx Pneumococcal Vaccination: No - Social History Hx Tobacco Use: Yes Hx Chewing Tobacco Use: No Hx Alcohol Use: No Hx Substance Use: No Hx Substance Use Treatment: No Hx Depression: Yes Hx Physical Abuse: No Hx Emotional Abuse: No - Female History Patient : No Family Medical History - Family History Father Living Status: Still Living Hx Family Hypertension: Yes - brother Hx Family Stroke: Yes - brother Hx Family Cancer: Yes - mom- cervical cancer Mother Family History: No Known Living Status: Still Living Hx Family;Other: Pt is adopted Physical Exam - Physical Exam General Appearance: Alert, Obvious distress Eyes, Ears, Nose, Throat: PERRL/EOMI, normal ENT inspection, TMs normal Neck: full range of motion, supple Cardiovascular/Respiratory: regular rate, rhythm, normal peripheral pulses, normal breath sounds, no respiratory distress Gastrointestinal/Abdominal: other - right lower quadrant discomfort palpation.colostomy and urostomy's are in place and without evidence of obvious infection. Back: normal inspection, no CVA tenderness, no vertebral tenderness Thigh/Hip: other - ight proximal lower extremities uncomfortable to palpation and movement. Swelling is significantly decreased from previous. No significant left lower extremity pain. Knee: normal inspection - mild edema, no evidence of injury, normal ROM Ankle: normal inspection, non-tender, normal ROM, swelling Foot: normal inspection, non-tender, no evidence of injury, normal ROM, swelling - ild Neuro/Tendon: normal sensation, normal tendon functions, no evidence tendon injury Mental Status: alert, oriented x 3, depressed affect Skin: normal color Progress - Progress Progress: 12/02/16 00:18 the patient is a 36-year-old female presenting to the emergency room secondary to persistent right lower extremity pain and running out of her chronic pain medications. The patient has follow-up appointment with her oncologist and pain management on . She will have a fentanyl patch placed here 50 g today that can be left in place until her follow-up appointment. She is also being given one dose of 5 mg hydrocodone and 1 mg IM of Dilaudid here. She needs to keep well-hydrated. She needs to continue her Lovenox injections for her lower extremity DVT. ER warnings were given otherwise. She needs to keep her routine follow-up with her primary care doctor. Departure - Departure Clinical Impression: Chronic pelvic pain in female Disposition: Discharge to Home or Self Care Condition: Fair Departure Forms: ED Discharge - Pt. Copy, Patient Portal Self Enrollment Diet: regular diet Activity: increase activity as tolerated Referrals: Jessie Carroll MD [Primary Care Provider] - 1-5 Days Home Medications: Ambulatory Orders Alprazolam [Alprazolam ER] 0.5 mg PO Q6HRS PRN 06/26/16 Gabapentin [Neurontin] 300 mg PO TID 06/26/16 Cyclobenzaprine HCl [Flexeril] 5 mg PO TID PRN 11/05/16 Duloxetine HCl [Cymbalta] 60 mg PO DAILY 11/07/16 Azithromycin [Zithromax] 500 mg PO DAILY #7 tab 11/08/16 Bifidobacterium Infantis [Align] 4 mg PO BEDTIME 11/08/16 tiZANidine [Zanaflex] 4 mg PO Q8H PRN #20 tab 11/08/16 HYDROcodone 10MG/APAP 325MG [[place] 10/325] 1 tab PO Q8HRS PRN #25 11/17/16 Morphine Sulfate [Morphine Sulfate ER] 30 mg PO BID #25 11/17/16 Ketorolac Tromethamine [Toradol Tabs] 10 mg PO Q6HR #16 tab 11/23/16 Additional Instructions: the patient is a 36-year-old female presenting to the emergency room secondary to persistent right lower extremity pain and running out of her chronic pain medications. The patient has follow-up appointment with her oncologist and pain management on . She will have a fentanyl patch placed here 50 g today that can be left in place until her follow-up appointment. She is also being given one dose of 5 mg hydrocodone and 1 mg IM of Dilaudid here. She needs to keep well-hydrated. She needs to continue her Lovenox injections for her lower extremity DVT. ER warnings were given otherwise. She needs to keep her routine follow-up with her primary care doctor.
[2016-12-02] MEDS ORDERED: fentaNYL PATCH 50 MCG/HR 1 EA PATCH TD ONE (00:21)
[2016-12-02] MEDS ORDERED: HYDROcodone 5MG/APAP 325MG 1 EA TAB PO ONE (00:21)
[2016-12-02] MEDS ORDERED: HYDROmorphone HCL INJ 2 MG/ML VIAL IM ONE (00:21)
[2016-12-02 01:01] VITALS: BP 139/70; TEMP 97; O2SAT 97
== END 2016-12-02 00:55 | disposition home or self-care (01) ==
LOC: ER 23:55
DX: G89.3 Neoplasm related pain (acute) (chronic) (principal); C53.9 Malignant neoplasm of cervix uteri, unspecified; I82.401 Acute embolism and thrombosis of unspecified deep veins of right lower extremity; I10 Essential (primary) hypertension; N18.9 Chronic kidney disease, unspecified; Z86.14 Personal history of Methicillin resistant Staphylococcus aureus infection; Z79.899 Other long term (current) drug therapy; Z93.3 Colostomy status

== ENCOUNTER 2016-12-06 21:01 | Emergency (ER) | payer OTHER ==
[2016-12-06 21:26] VITALS: TEMP 96.1; O2SAT 96
--- NOTE | 2016-12-06 21:44 | ED.PDOC ---
History of Present Illness - General Chief Complaint: General Stated Complaint: Right thigh swelling Time Seen by Provider: 12/06/16 21:17 Source: patient Exam Limitations: no limitations - History of Present Illness Initial Comments: he patient is a 36-year-old female presenting to the emergency room secondary to concern regarding her right lower extremity DVT. the patient is concerned she is having a little more extensive swelling in the right lower extremity. She is also noted that she has a little more heat in the right lower extremity than the left. She is not noting any new pain just a slight increase in her pain. she is taking her Lovenox injections currently while bridging onto her Coumadin. She is also noted a little more cold intolerance since starting the Coumadin. She is also noted maybe a little more shortness of breath. The patient is much more alert and interactive today. She is anxious. She is on a much reduced dose of her pain medications and seems to be feeling more sensations. the patient actually looksmuch better than I have seen her in a long time. She is not working to breathe. She is not diaphoretic. Eye contact is good. Oxygen saturations are 97-99% on room air. Her heart rateranges from 95-115. This is not unusual for her. Her blood pressures are within normal limits and she is afebrile. Examination of the right lower extremity shows that her leg is actually significantly less swollen than last week. Examination of her abdomen shows no significant change from last week. She actually seems to have less discomfort palpation of her abdomen than last week. Her lung gipson are clear. Air movement is good. additionally has a good sign, the patient has become much more active over the last week. She reports that she has oncology follow-up on the 22 of december. The patient is anxious about having a pulmonary embolism. I have discussed with the patient that her vital signs are good and her lung gipson are clear. It is possible that she has had a very small pulmonary embolus but there would be no change in her treatment unless it was much larger and causing significant cardiopulmonary compromise. The patient understands this and is comforted. She is okay with not having a CT angiogram at this time as it would not change her treatment. She will continue her Lovenox until her Coumadin is therapeutic. Timing/Duration: unsure Severity: mild Improving Factors: nothing Worsening Factors: nothing Associated Symptoms: denies symptoms Allergies/Adverse Reactions: Allergies NO KNOWN ALLERGY Allergy (Verified 12/02/16 00:29) Home Medications: Ambulatory Orders Enoxaparin Sodium [Lovenox] 12/02/16 Levofloxacin [Levaquin] 12/02/16 Review of Systems - Review of Systems Constitutional: States: no symptoms reported EENTM: States: no symptoms reported Respiratory: States: short of breath - very mild Cardiology: States: no symptoms reported Gastrointestinal/Abdominal: States: no symptoms reported Genitourinary: States: no symptoms reported Musculoskeletal: States: other - hronic changes Skin: States: no symptoms reported Neurological: States: anxiety Endocrine: States: intolerance to cold All other Systems: No Change from Baseline Past Medical History (General) - Patient Medical History Hx Seizures: No Hx Stroke: No Hx Asthma: No Hx of COPD: No Hx Cardiac Disorders: No Hx Congestive Heart Failure: No Hx Pacemaker: No Hx Hypertension: Yes Hx Diabetes: No Hx Renal Disease: Yes - kidney stents, left Hx Cancer: Yes - cervical cancer Hx MRSA: Yes - 2015 nasal - Vaccination History Hx Tetanus, Diphtheria Vaccination: No Hx Influenza Vaccination: No Hx Pneumococcal Vaccination: No Immunizations Up to Date: Yes - Social History Hx Tobacco Use: No Hx Chewing Tobacco Use: No Hx Alcohol Use: No Hx Substance Use: No Hx Substance Use Treatment: No Hx Depression: Yes Hx Physical Abuse: No Hx Emotional Abuse: No Hx Suspected Abuse: No - Activities of Daily Living Hospice Agency (if applicable):: None - Female History Patient is a Female of Child Bearing Age (10 -59 yrs old): Yes Patient : No Family Medical History - Family History Father Living Status: Still Living Hx Family Hypertension: Yes - brother Hx Family Stroke: Yes - brother Hx Family Cancer: Yes - mom- cervical cancer Mother Family History: No Known Living Status: Still Living Hx Family;Other: Pt is adopted Physical Exam - Physical Exam General Appearance: Alert, Anxious, Comfortable, No apparent distress Eye Exam: bilateral normal Ears, Nose, Throat: hearing grossly normal, normal ENT inspection, normal pharynx Neck: non-tender, full range of motion, supple Respiratory: chest non-tender, lungs clear, normal breath sounds, no respiratory distress, no accessory muscle use Cardiovascular/Chest: normal peripheral pulses, no edema, tachycardia - regular rhythm Peripheral Pulses: radial,right: 2+, radial,left: 2+, dorsalis pedis,right: 2+, dorsalis pedis,left: 2+, posterior tibialis,right: 2+, posterior tibialis,left: 2+ Gastrointestinal/Abdominal: normal bowel sounds, non tender, soft, other - urostomy and ostomy bags are in place Rectal Exam: deferred Back Exam: normal inspection, no CVA tenderness, no vertebral tenderness Extremity: normal range of motion, no pedal edema, no calf tenderness, normal capillary refill, other - still mild swelling presentin the right thigh Neurologic: alert, normal mood/affect, oriented x 3 Skin Exam: normal color Comments: Vital Signs - 24 hr 12/06/16 12/06/16 21:16 21:17 Temperature 96.1 F L Pulse Rate [ 105 H 105 H left radial] Respiratory 20 20 Rate Blood Pressure 125/87 [Left Arm] O2 Sat by Pulse 96 Oximetry Progress - Progress Progress: 12/06/16 21:46 the patient is a 36-year-old female with a known DVT to the right lower extremity presenting due to concerns for a pulmonary embolus. concerns have been addressed. The patient is showing no evidence of hypoxia or cardiopulmonary compromise that would indicate a significant pulmonary embolus that would require further intervention. She is already taking therapeutic Lovenox doses and has started bridging with Coumadin. she can expect some cold intolerance with the Coumadin on board. She needs to continue being active. She needs to keep follow-up with her oncologist. She needs to follow up with her primary care doctor as well. eR warnings were given for any worsening. Continue her current pain management strategy. She does appear to be improving. Departure - Departure Clinical Impression: Anxiety about health Disposition: Discharge to Home or Self Care Condition: Fair Departure Forms: ED Discharge - Pt. Copy, Patient Portal Self Enrollment Diet: regular diet Activity: increase activity as tolerated Referrals: Jessie Carroll MD [Primary Care Provider] - 1-2 Weeks Home Medications: Ambulatory Orders Enoxaparin Sodium [Lovenox] 12/02/16 Levofloxacin [Levaquin] 12/02/16 Additional Instructions: the patient is a 36-year-old female with a known DVT to the right lower extremity presenting due to concerns for a pulmonary embolus. concerns have been addressed. The patient is showing no evidence of hypoxia or cardiopulmonary compromise that would indicate a significant pulmonary embolus that would require further intervention. She is already taking therapeutic Lovenox doses and has started bridging with Coumadin. she can expect some cold intolerance with the Coumadin on board. She needs to continue being active. She needs to keep follow-up with her oncologist. She needs to follow up with her primary care doctor as well. eR warnings were given for any worsening. Continue her current pain management strategy. She does appear to be improving.
[2016-12-06 22:07] VITALS: BP 131/51
== END 2016-12-06 22:07 | disposition home or self-care (01) ==
LOC: ER 21:01
DX: F41.9 Anxiety disorder, unspecified (principal); I10 Essential (primary) hypertension; C53.9 Malignant neoplasm of cervix uteri, unspecified; I82.401 Acute embolism and thrombosis of unspecified deep veins of right lower extremity; Z79.01 Long term (current) use of anticoagulants; Z86.14 Personal history of Methicillin resistant Staphylococcus aureus infection; Z85.528 Personal history of other malignant neoplasm of kidney

== ENCOUNTER → 2016-12-08 | Outpatient (CLI) | payer OTHER | LOC: LAB 09:05 | PROVIDERS: ATTEND General Practice | DX: I80.10 Phlebitis and thrombophlebitis of unspecified femoral vein (principal) ==

== ENCOUNTER → 2016-12-11 | Outpatient (CLI) | payer OTHER | END | disposition home or self-care (01) | LOC: LAB.O 12:29 | PROVIDERS: ATTEND General Practice | DX: I80.10 Phlebitis and thrombophlebitis of unspecified femoral vein (principal) ==

== ENCOUNTER 2016-12-12 20:29 | Emergency (ER) | payer OTHER ==
[2016-12-12 20:56] VITALS: BP 131/85; TEMP 98.9; O2SAT 98
[2016-12-12] MEDS: CYCLOBENZAPRINE HCL 10 MG TAB PO ONE (21:06)
[2016-12-12] MEDS: KETOROLAC TROMETHAMINE INJ 30 MG/ML VIAL IM ONE (21:06)
[2016-12-12] MEDS: GABAPENTIN 300 MG CAP PO ONE (21:06)
[2016-12-12] MEDS: predniSONE 20 MG TAB PO ONE (21:06)
--- NOTE | 2016-12-12 22:04 | ED.PDOC ---
History of Present Illness - General Chief Complaint: General Stated Complaint: R. Leg pain Time Seen by Provider: 12/12/16 20:35 Source: patient Exam Limitations: no limitations - History of Present Illness Initial Comments: the patient is a 36-year-old female presenting to emergency room secondary to sciatica flare on the right. The patient is well-known to this emergency room due to her cervical cancer and complications regarding its treatment. The patient has had a flare of her sciatica but she has had in the past. This time it appears clinically to be due to piriformis syndrome on the right. Symptoms have been flaring for the last 12-24 hours. No shortness of breath. She is very anxious. She is currently being treated for a DVT in that same lower extremity She is not having much in the way of low back pain currently. Most is localized over the piriformis muscle. Timing/Duration: 24 hours Severity: moderate Improving Factors: immobilization Worsening Factors: movement Associated Symptoms: denies symptoms Allergies/Adverse Reactions: Allergies NO KNOWN ALLERGY Allergy (Verified 12/12/16 20:48) Home Medications: Ambulatory Orders Enoxaparin Sodium [Lovenox] 12/02/16 Levofloxacin [Levaquin] 12/02/16 Cyclobenzaprine HCl [Flexeril] 5 mg PO TID PRN #30 tab 12/12/16 Gabapentin 12/12/16 Hydrocodone-Acetaminophen [Hydrocodone/Acetaminophen 7.5-325 mg] 1 tab PO Morphine Sulfate ER 12/12/16 Warfarin Sodium 12/12/16 predniSONE [Prednisone] 20 mg PO DAILY #5 tab 12/12/16 Review of Systems - Review of Systems Review of Systems: 12/12/16 22:03 for new or changing symptoms Constitutional: States: no symptoms reported EENTM: States: no symptoms reported Respiratory: States: no symptoms reported Cardiology: States: no symptoms reported Gastrointestinal/Abdominal: States: no symptoms reported Genitourinary: States: no symptoms reported Musculoskeletal: States: see HPI Skin: States: no symptoms reported Neurological: States: see HPI Endocrine: States: no symptoms reported All other Systems: No Change from Baseline Past Medical History (General) - Patient Medical History Hx Seizures: No Hx Stroke: No Hx Asthma: No Hx of COPD: No Hx Cardiac Disorders: No Hx Congestive Heart Failure: No Hx Pacemaker: No Hx Hypertension: Yes Hx Diabetes: No Hx Renal Disease: Yes - kidney stents, left Hx Cancer: Yes - patient is being treated for cervical cancer Hx MRSA: Yes - 2016 nasal - Vaccination History Hx Tetanus, Diphtheria Vaccination: No Hx Influenza Vaccination: No Hx Pneumococcal Vaccination: No - Social History Hx Tobacco Use: No Hx Chewing Tobacco Use: No Hx Alcohol Use: No Hx Substance Use: No Hx Substance Use Treatment: No Hx Depression: Yes Hx Physical Abuse: No Hx Emotional Abuse: No Hx Suspected Abuse: No - Activities of Daily Living Hospice Agency (if applicable):: None - Female History Patient is a Female of Child Bearing Age (10 -59 yrs old): Yes Patient : No Family Medical History - Family History Father Living Status: Still Living Hx Family Hypertension: Yes - brother Hx Family Stroke: Yes - brother Hx Family Cancer: Yes - mom- cervical cancer Mother Family History: No Known Living Status: Still Living Hx Family;Other: Pt is adopted Physical Exam - Physical Exam General Appearance: Alert, Other - she is obviously in some pain Eye Exam: bilateral normal Ears, Nose, Throat: hearing grossly normal, normal ENT inspection, normal pharynx Neck: non-tender, full range of motion, supple Respiratory: chest non-tender, lungs clear, normal breath sounds, no respiratory distress, no accessory muscle use Cardiovascular/Chest: normal peripheral pulses, no edema, tachycardia Peripheral Pulses: radial,right: 2+, radial,left: 2+, dorsalis pedis,right: 2+, dorsalis pedis,left: 2+, posterior tibialis,right: 2+, posterior tibialis,left: 2+ Gastrointestinal/Abdominal: soft, other - mild chronic right lower quadrant discomfort palpation. No rebound or definite peritoneal signs. Both ostomies are in place. Rectal Exam: deferred Back Exam: normal inspection, no CVA tenderness, no vertebral tenderness Extremity: normal range of motion, normal inspection, no calf tenderness, normal capillary refill, pedal edema - 1+ to the right lower extremity which is now chronic, other - the patient has right gluteal pain over the piriformis muscle. Neurologic: director merit system II-XII nml as tested, alert, normal mood/affect - she is anxious , oriented x 3 Skin Exam: normal color Comments: Vital Signs - 24 hr 12/12/16 20:50 Temperature 98.9 F Pulse Rate [ 127 H left] Respiratory 18 Rate Blood Pressure 131/85 [right] O2 Sat by Pulse 98 Oximetry Progress - Progress Progress: 12/12/16 22:05 the patient is a 36-year-old female presenting to the emergency room secondary to right-sided sciatica flare that appears to be due to piriformis syndrome. The patient was given an extra dose of her gabapentin tonight along with a dose of prednisone and Flexeril. She was also given a dose of Toradol. The patient has been instructed on how to stretch out the piriformis muscle. Topical heat may work as well. She can periodically increase her gabapentin from 300-600 mg to help with relief. She will be placed on prednisone 20 mg daily for 5 days only. She will also receive a prescription of Flexeril as a muscle relaxer. ER warnings were given. She should follow up with her primary care doctor early next week. Continue treatment for her DVT. Departure - Departure Clinical Impression: Piriformis syndrome Qualifiers: Laterality: right Qualified Code(s): G57.01 - Lesion of sciatic nerve, right lower limb Disposition: Discharge to Home or Self Care Condition: Fair Departure Forms: ED Discharge - Pt. Copy, Patient Portal Self Enrollment Instructions: DI for Sciatica Diet: regular diet Activity: increase activity as tolerated Referrals: Devin Esquivel MD [Primary Care Provider] - 1-5 Days Prescriptions: Cyclobenzaprine HCl [Flexeril] 5 mg PO TID PRN #30 tab PRN Reason: Muscle Spasms predniSONE [Prednisone] 20 mg PO DAILY #5 tab Home Medications: Ambulatory Orders Enoxaparin Sodium [Lovenox] 12/02/16 Levofloxacin [Levaquin] 12/02/16 Cyclobenzaprine HCl [Flexeril] 5 mg PO TID PRN #30 tab 12/12/16 Gabapentin 12/12/16 Hydrocodone-Acetaminophen [Hydrocodone/Acetaminophen 7.5-325 mg] 1 tab PO Morphine Sulfate ER 12/12/16 Warfarin Sodium 12/12/16 predniSONE [Prednisone] 20 mg PO DAILY #5 tab 12/12/16 Additional Instructions: the patient is a 36-year-old female presenting to the emergency room secondary to right-sided sciatica flare that appears to be due to piriformis syndrome. The patient was given an extra dose of her gabapentin tonight along with a dose of prednisone and Flexeril. She was also given a dose of Toradol. The patient has been instructed on how to stretch out the piriformis muscle. Topical heat may work as well. She can periodically increase her gabapentin from 300-600 mg to help with relief. She will be placed on prednisone 20 mg daily for 5 days only. She will also receive a prescription of Flexeril as a muscle relaxer. ER warnings were given. She should follow up with her primary care doctor early next week. Continue treatment for her DVT.
== END 2016-12-12 22:14 | disposition home or self-care (01) ==
LOC: ER 20:29
DX: G57.01 Lesion of sciatic nerve, right lower limb (principal); C53.9 Malignant neoplasm of cervix uteri, unspecified; I82.401 Acute embolism and thrombosis of unspecified deep veins of right lower extremity; F32.9 Major depressive disorder, single episode, unspecified; Z86.14 Personal history of Methicillin resistant Staphylococcus aureus infection; Z79.01 Long term (current) use of anticoagulants; Z79.899 Other long term (current) drug therapy

== ENCOUNTER 2016-12-16 21:51 | Emergency (ER) | payer OTHER ==
[2016-12-16 22:26] VITALS: TEMP 97.9; O2SAT 99
[2016-12-16] MEDS ORDERED: HYDROmorphone HCL INJ 2 MG/ML VIAL IM ONE ×2 (22:29→23:23)
[2016-12-16] MEDS ORDERED: diazePAM 2 MG TAB PO ONE (22:29)
--- NOTE | 2016-12-16 23:26 | ED.PDOC ---
History of Present Illness - General Chief Complaint: Lower Extremity Injury Stated Complaint: chronic leg pain Time Seen by Provider: 12/16/16 21:52 Source: patient Exam Limitations: no limitations - History of Present Illness Initial Comments: the patient is a 36-year-old female presented to the emergency room secondary to persistent right lower extremity sciatica. I saw the patient for 5 days ago for similar complaints and clinically she appears to have piriformis syndrome on the right giving her the sciatica. We had her increase her gabapentin and placed on some prednisone as well as some Flexeril. This reduces symptoms some for a few days but now the symptoms are back and just a strong. Additionally she is having some spasm now extending up her lumbar spine on the same side she is eating and drinking well. No fevers. The patient has an appointment with her oncology group tomorrow to discuss the findings of her last imaging and see if any of the pain is related to any untreated cancer at this point. The patient is currently on a reduced dose of her opiate pain medications in comparison to previous dosing. This likely has something to do with the increased pain as well. Additionally she is very anxious. She is undergoing a coagulation for her DVT. There is no significant swelling of the lower extremity. This is much improved. She is not having any shortness of breath or hypoxia. She is tachycardic when she is in pain but when the pain improves her pulse goes down Severity: moderate Improving Factors: nothing Worsening Factors: nothing Associated Symptoms: denies symptoms Allergies/Adverse Reactions: Allergies NO KNOWN ALLERGY Allergy (Verified 12/12/16 20:48) Home Medications: Ambulatory Orders Enoxaparin Sodium [Lovenox] 12/02/16 Levofloxacin [Levaquin] 12/02/16 Cyclobenzaprine HCl [Flexeril] 5 mg PO TID PRN #30 tab 12/12/16 Gabapentin 12/12/16 Hydrocodone-Acetaminophen [Hydrocodone/Acetaminophen 7.5-325 mg] 1 tab PO Morphine Sulfate ER 12/12/16 Warfarin Sodium 12/12/16 predniSONE [Prednisone] 20 mg PO DAILY #5 tab 12/12/16 Review of Systems - Review of Systems Constitutional: States: malaise EENTM: States: no symptoms reported Respiratory: States: no symptoms reported Cardiology: States: no symptoms reported Gastrointestinal/Abdominal: States: see HPI Genitourinary: States: see HPI Musculoskeletal: States: back pain Skin: States: no symptoms reported Neurological: States: paresthesia - sciatica Endocrine: States: no symptoms reported All other Systems: No Change from Baseline Past Medical History (General) - Patient Medical History Hx Seizures: No Hx Stroke: No Hx Asthma: No Hx of COPD: No Hx Cardiac Disorders: No Hx Congestive Heart Failure: No Hx Pacemaker: No Hx Hypertension: Yes Hx Diabetes: No Hx Renal Disease: Yes - kidney stents, left Hx Cancer: Yes - cervical Hx MRSA: Yes - 2016 nasal - Vaccination History Hx Tetanus, Diphtheria Vaccination: No Hx Influenza Vaccination: No Hx Pneumococcal Vaccination: No - Social History Hx Tobacco Use: No Hx Chewing Tobacco Use: No Hx Alcohol Use: No Hx Substance Use: No Hx Substance Use Treatment: No Hx Depression: Yes Hx Physical Abuse: No Hx Emotional Abuse: No Hx Suspected Abuse: No - Female History Patient : No Family Medical History - Family History Father Living Status: Still Living Hx Family Hypertension: Yes - brother Hx Family Stroke: Yes - brother Hx Family Cancer: Yes - mom- cervical cancer Mother Family History: No Known Living Status: Still Living Hx Family;Other: Pt is adopted Physical Exam - Physical Exam General Appearance: Alert, Obvious distress Eye Exam: bilateral normal Ears, Nose, Throat: hearing grossly normal, normal ENT inspection, normal pharynx Neck: full range of motion, supple Respiratory: chest non-tender, lungs clear, normal breath sounds, no respiratory distress, no accessory muscle use Cardiovascular/Chest: normal peripheral pulses, no edema, tachycardia - but regular Peripheral Pulses: radial,right: 2+, radial,left: 2+, dorsalis pedis,right: 2+, dorsalis pedis,left: 2+ Gastrointestinal/Abdominal: soft, other - the patient has chronic right lower quadrant abdominal discomfort palpation. Her urostomy and colostomy is in place. Rectal Exam: deferred, other - the patient does have piriformis tenderness to palpation on the right. 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 The patient has chronic sciatica on the right worsened with what appears to be piriformis syndrome that has been poorly responsive to prednisone and muscle relaxer. She is now having some muscle spasm extending up her right lower back due to abnormal positioning required to get comfortable with the piriformis syndrome. The patient received 2 doses of IM Dilaudid. She also receives oral Valium as a muscle relaxer. Pain is improving but not gone. She can continue the higher dose gabapentin but should expect some mild dizziness with it. She needs to keep follow-up with her oncologist tomorrow to see if the pain is related to her cancer diagnoses. If not then she needs to get set up with neurology for evaluation and treatment of sciatica. ER warnings were given. She needs to keep follow-up with her primary care doctor as well next week. Departure - Departure Clinical Impression: Back pain with right-sided sciatica Disposition: Discharge to Home or Self Care Condition: Fair Departure Forms: ED Discharge - Pt. Copy, Patient Portal Self Enrollment Instructions: DI for Low Back Pain, DI for Sciatica Diet: regular diet Activity: increase activity as tolerated Referrals: Devin Esquivel MD [Primary Care Provider] - 1-5 Days Home Medications: Ambulatory Orders Enoxaparin Sodium [Lovenox] 12/02/16 Levofloxacin [Levaquin] 12/02/16 Cyclobenzaprine HCl [Flexeril] 5 mg PO TID PRN #30 tab 12/12/16 Gabapentin 12/12/16 Hydrocodone-Acetaminophen [Hydrocodone/Acetaminophen 7.5-325 mg] 1 tab PO Morphine Sulfate ER 12/12/16 Warfarin Sodium 12/12/16 predniSONE [Prednisone] 20 mg PO DAILY #5 tab 12/12/16 Additional Instructions: the patient is a 36-year-old female with a history of pelvic cancer currently in between treatments. The patient has chronic sciatica on the right worsened with what appears to be piriformis syndrome that has been poorly responsive to prednisone and muscle relaxer. She is now having some muscle spasm extending up her right lower back due to abnormal positioning required to get comfortable with the piriformis syndrome. The patient received 2 doses of IM Dilaudid. She also receives oral Valium as a muscle relaxer. Pain is improving but not gone. She can continue the higher dose gabapentin but should expect some mild dizziness with it. She needs to keep follow-up with her oncologist tomorrow to see if the pain is related to her cancer diagnoses. If not then she needs to get set up with neurology for evaluation and treatment of sciatica. ER warnings were given. She needs to keep follow-up with her primary care doctor as well next week.
[2016-12-16 23:44] VITALS: BP 150/88
== END 2016-12-16 23:44 | disposition home or self-care (01) ==
LOC: ER 21:51
DX: M54.41 Lumbago with sciatica, right side (principal); I10 Essential (primary) hypertension; I82.409 Acute embolism and thrombosis of unspecified deep veins of unspecified lower extremity; Z85.41 Personal history of malignant neoplasm of cervix uteri; Z86.14 Personal history of Methicillin resistant Staphylococcus aureus infection; Z79.01 Long term (current) use of anticoagulants; Z79.899 Other long term (current) drug therapy
CPT/HCPCS: J1170 ×2

== ENCOUNTER 2016-12-19 18:23 | Emergency (ER) | payer OTHER ==
--- NOTE | 2016-12-19 18:41 | ED.PDOC ---
History of Present Illness - General Chief Complaint: Abdominal Pain Stated Complaint: stomach pain Time Seen by Provider: 12/19/16 18:25 Source: patient Exam Limitations: no limitations - History of Present Illness Initial Comments: Patient presents with abdominal pain since this morning. The pain is umbilical with no radiation. Aching in nature. Constant. Associated with one episode of N/ V. No diarrhea. Last bm yesterday was normal. Last meal this morning was normal. Patient currently being treated for cervical cancer. Timing/Duration: other - 10 hours Severity: moderate Improving Factors: nothing Worsening Factors: nothing Associated Symptoms: denies symptoms Allergies/Adverse Reactions: Allergies NO KNOWN ALLERGY Allergy (Verified 12/12/16 20:48) Home Medications: Ambulatory Orders Enoxaparin Sodium [Lovenox] 12/02/16 Levofloxacin [Levaquin] 12/02/16 Cyclobenzaprine HCl [Flexeril] 5 mg PO TID PRN #30 tab 12/12/16 Gabapentin 12/12/16 Hydrocodone-Acetaminophen [Hydrocodone/Acetaminophen 7.5-325 mg] 1 tab PO Morphine Sulfate ER 12/12/16 Warfarin Sodium 12/12/16 predniSONE [Prednisone] 20 mg PO DAILY #5 tab 12/12/16 Review of Systems - Review of Systems Constitutional: States: no symptoms reported EENTM: States: no symptoms reported Respiratory: States: no symptoms reported Cardiology: States: no symptoms reported Gastrointestinal/Abdominal: States: see HPI Genitourinary: States: no symptoms reported Musculoskeletal: States: no symptoms reported Skin: States: no symptoms reported Neurological: States: no symptoms reported Endocrine: States: no symptoms reported Hematologic/Lymphatic: States: no symptoms reported Past Medical History (General) - Patient Medical History Hx Seizures: No Hx Stroke: No Hx Asthma: No Hx of COPD: No Hx Cardiac Disorders: No Hx Congestive Heart Failure: No Hx Pacemaker: No Hx Hypertension: Yes Hx Diabetes: No Hx Renal Disease: Yes - kidney stents, left Hx Cancer: Yes - cervical Hx MRSA: Yes - 2016 nasal - Vaccination History Hx Tetanus, Diphtheria Vaccination: No Hx Influenza Vaccination: No Hx Pneumococcal Vaccination: No - Social History Hx Tobacco Use: No Hx Chewing Tobacco Use: No Hx Alcohol Use: No Hx Substance Use: No Hx Substance Use Treatment: No Hx Depression: Yes Hx Physical Abuse: No Hx Emotional Abuse: No Hx Suspected Abuse: No - Female History Patient : No Family Medical History - Family History Father Living Status: Still Living Hx Family Hypertension: Yes - brother Hx Family Stroke: Yes - brother Hx Family Cancer: Yes - mom- cervical cancer Mother Family History: No Known Living Status: Still Living Hx Family;Other: Pt is adopted Physical Exam - Physical Exam General Appearance: Alert Respiratory: lungs clear Cardiovascular/Chest: normal peripheral pulses, regular rate, rhythm Gastrointestinal/Abdominal: normal bowel sounds, soft, other - Mildly TTP over umbilicus. NABS. Back Exam: no CVA tenderness Skin Exam: normal color Progress - Progress Progress: 12/19/16 19:48 CT ab/pelvis showed SBO likely due to metastasis. Patient transferred to [facility] in [place] where she can be evaluated by a surgeon as well as her oncologist, Dr. Carroll. Laboratory Tests 12/19/16 12/19/16 12/19/16 18:50 18:50 18:50 WBC 5.8 RBC 2.80 L Hgb 8.9 L Hct 27.6 L MCV 98.5 MCH 31.7 H MCHC 32.4 L RDW 20.2 H Plt Count 240 MPV 6.8 L Absolute Neuts (auto) 4.90 Absolute Lymphs (auto) 0.60 L Absolute Monos (auto) 0.40 Absolute Eos (auto) 0.00 Absolute Basos (auto) 0.00 Neutrophils % 83.3 H Lymphocytes % 9.8 L Monocytes % 6.2 Eosinophils % 0.4 L Basophils % 0.3 PT 21.7 H* INR 1.930 PTT (SP) 43.7 H Sodium 137 Potassium 3.8 Chloride 96 L Carbon Dioxide 30 Anion Gap 14.8 BUN 19 H Creatinine 0.75 BUN/Creatinine Ratio 25.3 H Random Glucose 130 H Serum Osmolality 277.8 Calcium 9.3 Total Bilirubin 0.7 AST 22 ALT 12 Alkaline Phosphatase 67 Serum Total Protein 7.8 Albumin 3.6 Globulin 4.2 H Albumin/Globulin Ratio 0.9 L Lipase Urine Color Urine Appearance Urine pH Ur Specific [place] Urine Protein Urine Glucose (UA) Urine Ketones Urine Blood Urine Nitrite Urine Bilirubin Urine Urobilinogen Ur Leukocyte Esterase Urine RBC Urine WBC Ur Epithelial Cells Urine Bacteria 12/19/16 12/19/16 18:50 19:19 WBC RBC Hgb Hct MCV MCH MCHC RDW Plt Count MPV Absolute Neuts (auto) Absolute Lymphs (auto) Absolute Monos (auto) Absolute Eos (auto) Absolute Basos (auto) Neutrophils % Lymphocytes % Monocytes % Eosinophils % Basophils % PT INR PTT (SP) Sodium Potassium Chloride Carbon Dioxide Anion Gap BUN Creatinine BUN/Creatinine Ratio Random Glucose Serum Osmolality Calcium Total Bilirubin AST ALT Alkaline Phosphatase Serum Total Protein Albumin Globulin Albumin/Globulin Ratio Lipase 29 Urine Color Yellow Urine Appearance Turbid Urine pH 6.5 Ur Specific [place] 1.015 Urine Protein 30 Urine Glucose (UA) Negative Urine Ketones Negative Urine Blood Trace-lysed H Urine Nitrite Positive H Urine Bilirubin Negative Urine Urobilinogen 0.2 Ur Leukocyte Esterase Small H Urine RBC 5-10 H Urine WBC 30-40 H Ur Epithelial Cells 0 Urine Bacteria 2+ H 12/19/16 20:31 Departure - Departure Clinical Impression: Small bowel obstruction, Metastasis from cervical cancer Disposition: Transfer to Hospital Condition: Fair Diet: other - NPO Activity: other - as per hospitalist Referrals: Devin Esquivel MD [Primary Care Provider] - 1-2 Weeks Home Medications: Ambulatory Orders Enoxaparin Sodium [Lovenox] 12/02/16 Levofloxacin [Levaquin] 12/02/16 Cyclobenzaprine HCl [Flexeril] 5 mg PO TID PRN #30 tab 12/12/16 Gabapentin 12/12/16 Hydrocodone-Acetaminophen [Hydrocodone/Acetaminophen 7.5-325 mg] 1 tab PO Morphine Sulfate ER 12/12/16 Warfarin Sodium 12/12/16 predniSONE [Prednisone] 20 mg PO DAILY #5 tab 12/12/16
--- NOTE | 2016-12-19 19:41 | CT ---
EXAM DESCRIPTION: Abdomen/Pelvis w/Contrast CLINICAL HISTORY: 36 years Female abdominal pain, hx of cervical cancer COMPARISON: 11/05/2016. TECHNIQUE: Contiguous axial images obtained through the abdomen and pelvis following IV contrast. Reformatted images obtained. This exam was performed according to our department optimization program which includes automated exposure control, adjustment of the mA and/or kv according to patient size and/or use of iterative reconstruction technique. FINDINGS: There are noncalcified nodules in the lung bases bilaterally which were present on the previous study may reflect metastatic disease. There is a necrotic appearing mass in the periaortic region in the lower chest concerning for metastatic adenopathy. This measures 3.1 x 2.7 cm and appears larger than on the prior exam. Low-attenuation along the falciform ligament likely focal fatty infiltration. The spleen and pancreas appear unremarkable. No adrenal masses. The right kidney appears within normal limits. There is persistent moderate hydronephrosis on the left with atrophy of the left renal cortex which has developed when compared to the previous study. The gallbladder is visualized. No aneurysmal dilatation of the aorta. There is moderate fluid-filled distention of small bowel suggesting obstruction. The zone of transition is in the right pelvis posteriorly on image 69 where there is a loop of small bowel that appears to have lobular wall thickening. Findings are concerning for metastatic involvement. There is abnormal soft tissue along the presacral space and the right posterior pelvic sidewall which in part was present on the previous study and may reflect postsurgical change. Additional areas of metastatic disease are not excluded. The distal small bowel is decompressed. There is moderate fecal material in the colon which extends to a left lower quadrant ostomy. There is necrotic-appearing mass in the retroperitoneum along the bifurcation and common iliac artery on the right with mass measuring 3.5 x 2.9 cm which is larger than on the previous study. This may represent necrotic tumor. This may also communicate with the adjacent loop of small bowel so the possibility of fistulous connection to the bowel should be considered. 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 Ileal conduit in the anterior right pelvis. The appendix is not visualized.. Free fluid in the pelvis. There is irregularity along the anterior cortices of L3 and L4 which is nonspecific but may reflect invasion by adjacent metastatic disease. IMPRESSION: Findings consistent with small bowel obstruction. The zone of transition is in the right posterior pelvis with there is nodular wall thickening in a loop of small bowel consistent with metastatic involvement. There is an adjacent necrotic-appearing mass along the right common iliac vessels and the spine which may reflect necrotic tumor. This may communicate with the lumen of the small bowel resulting in fistula/abscess formation. There is abnormal soft tissue and fluid in the presacral space which likely represents postsurgical change. Nodular soft tissue density along the right posterior pelvic sidewall is concerning for metastatic disease. 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 The possibility of infection is not excluded Dr. Vargas was called and notified of the bowel obstruction at 7:35 PM central time. Electronically signed by: Safia Salazar 12/19/2016 7:39 PM CDT
[2016-12-19] MEDS ORDERED: HYDROmorphone HCL INJ 2 MG/ML VIAL IV ONE (19:45)
[2016-12-19 21:44] VITALS: BP 143/89; TEMP 96.4; O2SAT 96
== END 2016-12-19 21:10 | disposition short-term general hospital (02) ==
LOC: ER 18:23
DX: K56.60 Unspecified intestinal obstruction (principal); C53.9 Malignant neoplasm of cervix uteri, unspecified; C79.9 Secondary malignant neoplasm of unspecified site; Z80.8 Family history of malignant neoplasm of other organs or systems; Z86.14 Personal history of Methicillin resistant Staphylococcus aureus infection; Z79.899 Other long term (current) drug therapy; Z79.01 Long term (current) use of anticoagulants
CPT/HCPCS: 36415; 74177; 80053; 81001; 83690; 84436; 84443; 85025; 85610; 85730; 87086; 87088; 87186; J1170

== ENCOUNTER 2016-12-28 19:01 | Emergency (ER) | payer OTHER ==
--- NOTE | 2016-12-28 19:11 | ED.PDOC ---
History of Present Illness - General Chief Complaint: Abdominal Pain Stated Complaint: abdominal pain Time Seen by Provider: 12/28/16 19:10 Information Source: patient Exam Limitations: no limitations - History of Present Illness Initial Comments: Maddy Scott 36 y/o female with history of Cervical cancer with distant metastases came back today after she was recently discharge from [facility] FW with SBO was placed on NGT decompressed and obstruction resolved sent back home.Hospitalized 12/19-.The last 2 days had the same symptoms of constant sharp stabbing abdominal pain and belly getting more distended.Also had just been eating jello and colostomy bag had been empty the last 2 days.She underwent several rounds of chemotherapy and multiple radiation treatment which was discontinued since according to her did not work. Abdominal Pain Onset Location: generalized abdomen Quality: moderate, steady, stabbing Timing/Duration: getting worse Improving Factors: nothing Worsening Factors: eating Associated Symptoms: nausea/vomiting, swelling/mass in abdomen Review of Systems - Review of Systems Constitutional: States: no symptoms reported EENTM: States: no symptoms reported Respiratory: States: no symptoms reported Gastrointestinal/Abdominal: States: see HPI Musculoskeletal: States: no symptoms reported Skin: States: no symptoms reported Neurological: States: no symptoms reported Past Medical History (General) - Patient Medical History Hx Seizures: No Hx Stroke: No Hx Asthma: No Hx of COPD: No Hx Cardiac Disorders: No Hx Congestive Heart Failure: No Hx Pacemaker: No Hx Hypertension: Yes Hx Diabetes: No Hx Renal Disease: Yes - kidney stents, left Hx Cancer: Yes - cervical Hx MRSA: Yes - 2016 nasal Surgical History: cancer surgery, other - tahbso,colostomy,cystectomy,ureteral stent - Vaccination History Hx Tetanus, Diphtheria Vaccination: No Hx Influenza Vaccination: No Hx Pneumococcal Vaccination: No - Social History Hx Tobacco Use: No Hx Chewing Tobacco Use: No Hx Alcohol Use: No Hx Substance Use: No Hx Substance Use Treatment: No Hx Depression: Yes Hx Physical Abuse: No Hx Emotional Abuse: No Hx Suspected Abuse: No - Female History Patient : No Family Medical History - Family History Father Living Status: Still Living Hx Family Hypertension: Yes - brother Hx Family Stroke: Yes - brother Hx Family Cancer: Yes - mom- cervical cancer Mother Family History: No Known Living Status: Still Living Hx Family;Other: Pt is adopted Physical Exam - Physical Exam General Appearance: Alert, Anxious, No apparent distress Eyes, Ears, Nose, Throat Exam: PERRL/EOMI, normal ENT inspection, TMs normal Neck: non-tender, full range of motion, supple Respiratory: chest non-tender, lungs clear, normal breath sounds Cardiovascular/Chest: normal peripheral pulses, regular rate, rhythm, no murmur Peripheral Pulses: No deficit Gastrointestinal/Abdominal: distended, tenderness, other - tense Extremity: normal range of motion, non-tender, no pedal edema, no calf tenderness Neurologic: alert, oriented x 3 Skin Exam: normal color, warm/dry Lymphatic: no adenopathy Progress - Progress Progress: 12/28/16 20:00 Vital Signs - 8 hr 12/28/16 19:15 Temperature 98.4 F Pulse Rate [ 142 H monitor] Respiratory 20 Rate Blood Pressure 146/114 [Left Arm] O2 Sat by Pulse 99 Oximetry - Results/Orders Results/Orders: 12/28/16 19:52 IV Care:Saline Lock per Protoc QSHIFT 12/28/16 20:01 URINALYSIS Stat 12/28/16 21:07 Hold Metformin x 48Hrs [id number] Laboratory Results - last 24 hr 12/28/16 12/28/16 20:10 20:10 WBC 3.0 L RBC 2.93 L Hgb 9.0 L Hct 27.3 L MCV 93.1 MCH 30.7 MCHC 32.9 L RDW 17.7 H Plt Count 145 MPV 7.3 L Absolute Neuts (auto) 2.10 Absolute Lymphs (auto) 0.60 L Absolute Monos (auto) 0.30 Absolute Eos (auto) 0.00 Absolute Basos (auto) 0.00 Neutrophils % 69.7 Lymphocytes % 19.1 L Monocytes % 9.9 H Eosinophils % 0.9 L Basophils % 0.4 Sodium 136 Potassium 3.3 L Chloride 95 L Carbon Dioxide 27 Anion Gap 17.3 BUN 10 Creatinine 0.75 BUN/Creatinine Ratio 13.3 Random Glucose 113 H Serum Osmolality 271.8 L Calcium 8.9 Total Bilirubin 0.5 AST 12 ALT 17 Alkaline Phosphatase 70 Serum Total Protein 7.0 Albumin 3.3 Globulin 3.7 H Albumin/Globulin Ratio 0.9 L - EKG/XRAY/CT XRAY: abdomen - ng tube in place CT Ordered: Yes - small bowel obstruction patchy opcification r mid lobe ? mets/ radiologist Departure - Departure Clinical Impression: Small bowel obstruction, History of cervical cancer Abdominal pain Qualifiers: Abdominal location: generalized Qualified Code(s): R10.84 - Generalized abdominal pain Time of Disposition: 00:37 Disposition: Transfer to Hospital Condition: Fair Referrals: Devin Esquivel MD [Primary Care Provider] - 1-2 Weeks Home Medications: Ambulatory Orders Gabapentin 300 mg PO TID 12/12/16 Morphine Sulfate ER 15 mg PO BID 12/12/16 Transfer to Outside Facility - Transfer Information Accepting Facility: [facility] Reason for Transfer: required specialist not available
[2016-12-28 19:22] VITALS: TEMP 98.4
[2016-12-28] MEDS ORDERED: LACTATED RINGERS 1,000 ML IVS ONE (19:52)
[2016-12-28] MEDS ORDERED: HYDROmorphone HCL INJ 2 MG/ML VIAL IV ONE ×2 (19:52→23:38)
--- NOTE | 2016-12-28 22:00 | CT ---
EXAM: Abdoment/Pelvis w/o Contrast CLINICAL INDICATION: 36-year-old female with lower abdominal pain. COMPARISON: 12/19/2016. EXAMINATION: CT of the abdomen and pelvis was performed without intravenous or oral contrast. Multiplanar reformatted images were provided. This exam was performed according to our departmental dose optimization program which includes use of automated exposure control, adjustment of the mA and/or kV according to patient size and/or use of iterative reconstruction technique. FINDINGS: Evaluation of solid organ pathology is limited secondary to lack of intravenous contrast. Within these limitations, the following observations are made. Chest: Evaluation through the lung bases reveal patchy opacification of the RIGHT middle lobe raising the concern for scarring, infectious or inflammatory process. Focal area of nodular opacity is identified centered within the area of groundglass opacification concerning for pulmonary nodule or metastasis. LEFT lower lobe and lingular groundglass subcentimeter opacity appears similar in comparison to the previous examination. Overall findings are similar to to the previous examination dated 12/19/2006. No pleural effusion or pneumothorax. Heart size is within normal limits. No pericardial effusion. Abdomen and pelvis: The liver, pancreas, spleen, RIGHT kidney and bilateral adrenal glands are within normal limits. Stable hydronephrosis of the LEFT kidney and worsening mild hydronephrosis of the RIGHT with hydroureter raising the concern for obstruction. RIGHT lower quadrant ileostomy appears similar in comparison to the previous examination. Stricture or stenosis cannot be excluded. LEFT renal atrophy. Hydropic appearance of the gallbladder. Bulky appearance of RIGHT retroperitoneal mass similar in size in comparison to the previous examination, however cannot be clearly evaluated secondary to lack of intravenous contrast. Overall the mass at the level of S1 measures 2.8 x 4.1 cm, (series 2, image 62), previously 3.0 x 4.7 cm. Stable tiny focus of air is identified again within the mass for which fistulization of bowel or abscess may be considered in the differential. Patency of the venous structures traversing the mass cannot be determined. Surgical clips an suture material within the pelvis. Diffuse stranding present throughout the pelvis with free fluid. LEFT lower quadrant ostomy within normal limits similar in comparison to the previous examination. Extensive dilation of small bowel loops with multiple air-fluid level measuring up to 4.3 cm compatible with small bowel obstruction. Suspected transition point present within the RIGHT hemipelvis adjacent to the RIGHT pelvic sidewall and multiple surgical clips. Interloop fluid present, ischemia not excluded. No free air. No free abdominopelvic fluid collections. The appendix is normal visualized. The osseous structures reveal focus of cortical lucency and loss of cortex at the level of the L3, L4 and L5 RIGHT anterolateral retroperitoneal mass concerning for metastasis or infectious process. IMPRESSION: 1. Extensively enlarged fluid-filled small bowel loops compatible with small bowel obstruction with suspected transition point present within the RIGHT hemipelvis adjacent to the RIGHT pelvic sidewall and multiple surgical clips. 2. RIGHT middle lobe patchy opacification with differential and details as above. Please correlate with patient clinical findings and follow-up for resolution. 3. Stable hydronephrosis of the LEFT kidney and worsening mild hydronephrosis of the RIGHT with hydroureter raising the concern for obstruction. RIGHT lower quadrant ileostomy appears similar in comparison to the previous examination. Stricture or stenosis cannot be excluded. 4. Grossly stable size of retroperitoneal mass. Stable tiny focus of air is identified again within the mass for which fistulization of bowel or abscess may be considered in the differential. Electronically signed by: Billie Desai MD 12/28/2016 9:58 PM CDT Workstation: [id number]
[2016-12-28] MEDS ORDERED: PROMETHAZINE HCL INJ 25 MG/ML VIAL IM ONE (23:40)
--- NOTE | 2016-12-29 00:12 | RAD ---
Procedure: XR ABDOMEN 1 VIEW (KUB) Exam Date: 12/28/2016 Ordering Provider: Tony Diallo Clinical Indication: verify NG tube placement Comparison: 12/28/2016 CT abdomen pelvis Findings: NG tube extends to the stomach. Gaseous distention of the small bowel consistent with small bowel obstruction. Right lower quadrant ostomy. There is no pneumoperitoneum. There are no suspicious calcifications. There is no acute skeletal abnormality. Impression: 1. NG tube in appropriate position. Electronically signed by: Garry Prince MD 12/29/2016 12:10 AM CDT
[2016-12-29 00:48] VITALS: BP 145/100
[2016-12-29 01:02] VITALS: O2SAT 96
== END 2016-12-29 01:00 | disposition short-term general hospital (02) ==
LOC: ER 19:01
DX: K56.60 Unspecified intestinal obstruction (principal); F32.9 Major depressive disorder, single episode, unspecified; Z85.41 Personal history of malignant neoplasm of cervix uteri; Z93.3 Colostomy status; Z86.14 Personal history of Methicillin resistant Staphylococcus aureus infection
CPT/HCPCS: 36415; 74000; 74176; 80053; 81001; 85025; 87086; 87088; 87186; J1170; J2550; J7120

== ENCOUNTER 2017-01-17 17:14 | Emergency (ER) | payer OTHER ==
[2017-01-17 17:53] VITALS: TEMP 96.8
[2017-01-17] MEDS ORDERED: SODIUM CHLORIDE 0.9% 1000ML 1,000 ML IVS ONE (18:04)
[2017-01-17] MEDS ORDERED: PROMETHAZINE HCL INJ 25 MG in SODIUM CHLORIDE 0.9% 50ML 50 ML IVPB ONE (18:04)
[2017-01-17] MEDS ORDERED: PROMETHAZINE HCL INJ 25 MG/ML VIAL ONE (18:27)
[2017-01-17] MEDS ORDERED: SODIUM CHLORIDE 0.9% 50ML 50 ML ONE (18:27)
--- NOTE | 2017-01-17 18:48 | RAD ---
EXAM DESCRIPTION: Abdomen Series CLINICAL HISTORY: 36 years Female ,n/v/tachycardia COMPARISON: 12/28/2016 TECHNIQUE: Frontal view chest x-ray and two views of the abdomen. FINDINGS: The cardiomediastinal silhouette appears unremarkable. No consolidating infiltrates or pleural effusions. [id number] catheter with the tip in the SVC. No evidence of free air. IVC filter in place. Post cervical changes in the pelvis. Ostomy in the left lower quadrant. Moderate distention of loops of small bowel in the central abdomen concerning for obstruction. Gas-filled distention of the colon is also noted. IMPRESSION: Moderate distention of loops of central small bowel concerning for obstruction. Consider further evaluation with CT Electronically signed by: Safia Salazar 01/17/2017 6:46 PM CDT
[2017-01-17] MEDS ORDERED: PHYTONADIONE INJ 10 MG/ML AMP IM ONE (19:29)
[2017-01-17] MEDS ORDERED: MAGNESIUM SULFATE PREMIX 2GM 2 GM in PREMIX BAG 1 BAG IVPB ONE (20:32)
[2017-01-17] MEDS ORDERED: FLUCONAZOLE 100 MG TAB PO ONE (20:33)
--- NOTE | 2017-01-17 20:35 | CT ---
EXAM DESCRIPTION: Abdoment/Pelvis w/o Contrast CLINICAL HISTORY: 36 years Female n/v, acute renal failure, creatinine 0.75 now 3.6 COMPARISON: 12/28/2016 TECHNIQUE: Contiguous axial images obtained through the abdomen and pelvis without IV contrast. Reformatted images obtained. This exam was performed according to our department optimization program which includes automated exposure control, adjustment of the mA and/or kv according to patient size and/or use of iterative reconstruction technique. FINDINGS: There is a small nodular focus in the anterior left lung base which is stable. Similarly there is a linear nodular focus in the right lung base which appears unchanged from the previous. Liver appears unchanged. The spleen and pancreas appear unremarkable. No adrenal masses. Small gastric diverticulum. There is moderate to severe hydronephrosis on the left with marked cortical atrophy. There is moderate hydronephrosis on the right. Ureters are dilated to the level of the ileal conduit. Postsurgical changes cystectomy with right lower quadrant conduit. The gallbladder is distended. No aneurysmal dilatation of the aorta. There is moderate small bowel distention in a pattern suggesting obstruction. The zone of transition is in the posterior pelvis to the right of the midline in the region of the previously noted retroperitoneal mass. On today's examination, there also appears to be some adjacent destruction of the vertebral bodies anteriorly and on the right involving L3-L4 and L5. The mass appears roughly stable as compared to the previous examination but the degree of bone destruction has progressed. There is moderate fecal material in the colon with a left lower quadrant colostomy. There is adjacent fluid extending into the hernia. IMPRESSION: Findings consistent with high-grade small bowel obstruction. The zone of transition is within the posterior right pelvis in the region of the abnormal retroperitoneal mass The retroperitoneal mass appears similar in size to the previous examination but there is increasing destruction of the L3-L4 and L5 vertebral bodies The mass is contiguous with abnormal soft tissue in the presacral space which may be related to scarring or extension of the mass Moderate to severe left and moderate right hydronephrosis IVC filter in place Scattered mesenteric and retroperitoneal lymph nodes Additional changes as above Electronically signed by: Safia Salazar 01/17/2017 8:33 PM CDT
[2017-01-17] MEDS ORDERED: MAGNESIUM SULFATE PREMIX 2GM 50 ML IVPB ONE (20:41)
--- NOTE | 2017-01-17 21:51 | ED.PDOC ---
History of Present Illness - General Chief Complaint: Abdominal Pain Stated Complaint: abdominal cramping Time Seen by Provider: 01/17/17 17:17 Source: patient Exam Limitations: no limitations - History of Present Illness Initial Comments: the patient is a 36-year-old female presenting to the emergency room primarily due to nausea and vomiting since this morning with some increase in her abdominal pain. There is been no blood or bile in the vomitus. She has been having urine output with her urostomy. She has been having some stool output with a colostomy. She is not having any focal abdominal pain. No chest pain. She does have a chronic right lower quadrant pain. No fevers. She was last in the hospital 2 weeks ago for a small bowel obstruction relieved with decompression from above. No recent medication changes. The patient does have long-standing pancytopenia related to her chemotherapy. Her last chemotherapy was in October. Her oncologist is Dr. Carroll out of [place]. The patient had her pelvic dissection at [facility] earlier in the year. the patient subsequently had a DVT with a pulmonary embolus. She has since been on blood thinners. The patient has had chronic pain related to her cancer and the surgery to treat it.the patient also has long-standing sinus tachycardiawith her average heart rate remaining around 120 bpm. Timing/Duration: 24 hours Severity: moderate Improving Factors: nothing Worsening Factors: nothing Associated Symptoms: malaise Allergies/Adverse Reactions: Allergies NO KNOWN ALLERGY Allergy (Verified 12/12/16 20:48) Home Medications: Ambulatory Orders Gabapentin 300 mg PO TID 12/12/16 Morphine Sulfate ER 15 mg PO BID 12/12/16 Review of Systems - Review of Systems Constitutional: States: malaise EENTM: States: no symptoms reported Respiratory: States: no symptoms reported Cardiology: States: no symptoms reported Gastrointestinal/Abdominal: States: abdominal pain - chronic, nausea, vomiting Genitourinary: States: no symptoms reported Musculoskeletal: States: back pain - chronic Skin: States: no symptoms reported Neurological: States: weakness - mild generalized Endocrine: States: no symptoms reported All other Systems: No Change from Baseline Past Medical History (General) - Patient Medical History Hx Seizures: No Hx Stroke: No Hx Dementia: No Hx Asthma: No Hx of COPD: No Hx Cardiac Disorders: No Hx Congestive Heart Failure: No Hx Pacemaker: No Hx Hypertension: Yes Hx Thyroid Disease: No Hx Diabetes: No Hx Gastroesophageal Reflux: Yes Hx Renal Disease: Yes - kidney stents, left Hx Cancer: Yes - cervical Hx of HIV: No Hx Hepatitis C: No Hx MRSA: Yes - 2016 nasal Surgical History: Hysterectomy - Vaccination History Hx Tetanus, Diphtheria Vaccination: No Hx Influenza Vaccination: No Hx Pneumococcal Vaccination: No - Social History Hx Tobacco Use: No Hx Chewing Tobacco Use: No Hx Alcohol Use: No Hx Substance Use: No Hx Substance Use Treatment: No Hx Depression: Yes Hx Physical Abuse: No Hx Emotional Abuse: No Hx Suspected Abuse: No - Female History Patient : No Family Medical History - Family History Father Living Status: Still Living Hx Family Hypertension: Yes - brother Hx Family Stroke: Yes - brother Hx Family Cancer: Yes - mom- cervical cancer Mother Family History: No Known Living Status: Still Living Hx Family;Other: Pt is adopted Physical Exam - Physical Exam General Appearance: Alert, No apparent distress Eye Exam: bilateral normal Ears, Nose, Throat: hearing grossly normal, normal ENT inspection, normal pharynx Neck: non-tender, full range of motion, supple Respiratory: chest non-tender, lungs clear, normal breath sounds, no respiratory distress, no accessory muscle use Cardiovascular/Chest: normal peripheral pulses, tachycardia - sinus Peripheral Pulses: radial,right: 2+, radial,left: 2+, dorsalis pedis,right: 2+, dorsalis pedis,left: 2+, posterior tibialis,right: 2+, posterior tibialis,left: 2+ Gastrointestinal/Abdominal: soft - stomy and urostomy bags are in place. No rebound or peritoneall signs. She does have chronic tenderness to palpationin the right lower quadrant and upper anterior thigh Rectal Exam: deferred Back Exam: other - mild vertebral tenderness of the lumbar spine but no visual changes. Questionable mild right costovertebral angle tenderness. Extremity: normal range of motion, non-tender, normal inspection, no calf tenderness, other - trace chronic pedal edema to the right lower extremity Neurologic: development administrator II-XII nml as tested, alert, normal mood/affect, oriented x 3 Skin Exam: normal color Comments: Vital Signs - 24 hr 01/17/17 01/17/17 01/17/17 17:49 18:14 19:26 Temperature 96.8 F L Pulse Rate [ 139 H 120 H 126 H Right Brachial] Respiratory 16 16 16 Rate Blood Pressure 123/96 126/96 123/99 [Right Arm] O2 Sat by Pulse 95 100 100 Oximetry 01/17/17 20:00 Temperature Pulse Rate [ 120 H Right Brachial] Respiratory 16 Rate Blood Pressure 119/95 [Right Arm] O2 Sat by Pulse 98 Oximetry Progress - Progress Progress: 01/17/17 21:56 the patient is a 36-year-old female with a history of metastatic cervical cancer status post chemotherapy and radical surgery. the patient's nausea and vomiting has resolved. she does still have her chronic pain. Her colostomy output since arrival has been very good. Bowel sounds are active. Clinically she does not appear obstructed. The patient has a supratherapeutic INR. She was given 5 of vitamin K IM. There is no gross evidence of any bleeding. She is chronically anemic. She does have chronic pancytopenia which is gradually worsening. She does have a low magnesium level and was given some IV magnesium here tonight. Sinus tachycardia did improve with the bolus of some IV fluids. Her most immediate concern is the deterioration in the patient's renal status. As little as 2-1/2 weeks ago her creatinine was 0.76. The concern based on changes on the CT scan is that she is getting obstruction of her ureters causing the renal failure. The patient is being transferred to [facility] where she had the original surgery performed. We are transferring for specialty evaluation and higher level of care. Dr. Mendenhall's help is appreciated. - Results/Orders Results/Orders: Laboratory Tests 01/17/17 01/17/17 01/17/17 18:15 18:15 18:15 WBC 2.1 L* RBC 3.19 L Hgb 9.5 L Hct 29.7 L MCV 93.1 MCH 29.7 MCHC 32.1 L RDW 18.2 H Plt Count 105 L MPV 8.1 Absolute Neuts (auto) Not Reportable Absolute Lymphs (auto) Not Reportable Absolute Monos (auto) Not Reportable Absolute Eos (auto) Not Reportable Neutrophils % Not Reportable Neutrophils % (Manual) 67.0 Lymphocytes % Not Reportable Lymphocytes % (Manual) 21.0 Monocytes % Not Reportable Monocytes % (Manual) 8.0 Eosinophils % Not Reportable Basophils % Not Reportable Band Neutrophils 4.0 Hypochromia 1+ Platelet Estimate Decreased Anisocytosis 1+ PT INR PTT (SP) Sodium 138 Potassium 4.2 Chloride 99 L Carbon Dioxide 21 Anion Gap 22.2 H BUN 39 H Creatinine 3.68 H BUN/Creatinine Ratio 10.6 Random Glucose 191 H Serum Osmolality 290.2 Calcium 9.1 Magnesium 1.3 L Total Bilirubin 1.0 AST 14 ALT < 8 L Alkaline Phosphatase 67 Creatine Kinase 23 L CK-MB (CK-2) 0.7 CK-MB (CK-2) % Not Reportable Troponin I < 0.02 B-Natriuretic Peptide 54.5 Serum Total Protein 7.8 Albumin 3.4 Globulin 4.4 H Albumin/Globulin Ratio 0.8 L Amylase 64 Lipase 30 TSH 0.69 Urine Color Urine Appearance Urine pH Ur Specific [place] Urine Protein Urine Glucose (UA) Urine Ketones Urine Blood Urine Nitrite Urine Bilirubin Urine Urobilinogen Ur Leukocyte Esterase Urine RBC Urine WBC Ur Epithelial Cells Urine Bacteria Urine Mucus Urine Yeast 01/17/17 01/17/17 18:15 18:43 WBC RBC Hgb Hct MCV MCH MCHC RDW Plt Count MPV Absolute Neuts (auto) Absolute Lymphs (auto) Absolute Monos (auto) Absolute Eos (auto) Neutrophils % Neutrophils % (Manual) Lymphocytes % Lymphocytes % (Manual) Monocytes % Monocytes % (Manual) Eosinophils % Basophils % Band Neutrophils Hypochromia Platelet Estimate Anisocytosis PT 72.9 H* INR 6.570 H* PTT (SP) 82.0 H* Sodium Potassium Chloride Carbon Dioxide Anion Gap BUN Creatinine BUN/Creatinine Ratio Random Glucose Serum Osmolality Calcium Magnesium Total Bilirubin AST ALT Alkaline Phosphatase Creatine Kinase CK-MB (CK-2) CK-MB (CK-2) % Troponin I B-Natriuretic Peptide Serum Total Protein Albumin Globulin Albumin/Globulin Ratio Amylase Lipase TSH Urine Color Yellow Urine Appearance Clear Urine pH 7.0 Ur Specific [place] 1.015 Urine Protein 100 H Urine Glucose (UA) Negative Urine Ketones Trace Urine Blood Moderate H Urine Nitrite Positive H Urine Bilirubin Negative Urine Urobilinogen 0.2 Ur Leukocyte Esterase Negative Urine RBC 3-5 H Urine WBC 0 Ur Epithelial Cells 3-5 Urine Bacteria 1+ Urine Mucus Moderate Urine Yeast 2+ budding H x-ray shows some dilated loops of small bowel which is essentially a chronic finding for this patient. CT scan of abdomen and pelvis shows moderate to severe hydronephrosis on the left and moderate hydronephrosis on the right with bilateral ureteral dilation down to the ileal conduit. She does have a chronic right retroperitoneal mass that is showing some erosion into the lumbar spine that appears new. She has known lesions in the lung bases. There is again known small bowel distention. Departure - Departure Clinical Impression: Primary cervical cancer with metastasis to other site Vomiting Qualifiers: Vomiting type: unspecified Vomiting Intractability: non-intractable Nausea presence: with nausea Qualified Code(s): R11.2 - Nausea with vomiting, unspecified Acute renal failure Qualifiers: Acute renal failure type: unspecified Qualified Code(s): N17.9 - Acute kidney failure, unspecified Disposition: Transfer to Hospital Home Medications: Ambulatory Orders Gabapentin 300 mg PO TID 12/12/16 Morphine Sulfate ER 15 mg PO BID 12/12/16 Transfer to Outside Facility - Transfer Information Accepting Provider:: dr mendenhall Accepting Facility: [facility] Reason for Transfer: required specialist not available
[2017-01-17] MEDS ORDERED: HYDROmorphone HCL INJ 2 MG/ML VIAL IV ONE (22:01)
[2017-01-17 22:11] VITALS: BP 125/90; O2SAT 98
== END 2017-01-17 22:35 | disposition short-term general hospital (02) ==
LOC: ER 17:14
DX: C53.9 Malignant neoplasm of cervix uteri, unspecified (principal); C79.9 Secondary malignant neoplasm of unspecified site; R11.2 Nausea with vomiting, unspecified; N17.9 Acute kidney failure, unspecified; Z93.3 Colostomy status; D64.9 Anemia, unspecified; F32.9 Major depressive disorder, single episode, unspecified
CPT/HCPCS: 36415; 74020; 74176; 80053; 81001; 82150; 82550; 82553; 83690; 83735; 83880; 84443; 84484; 85025; 85610; 85730; 87040; 87086; 93005; A4216; J1170; J2550; J3430; J3475; J7030

== ENCOUNTER 2017-01-25 11:35 | Emergency (ER) | payer OTHER ==
[~2017-01-25 11:35] MED LIST: SODIUM CHLORIDE 0.9% 1000ML 1,000 ML IVS ONE
[2017-01-25] MEDS ORDERED: NALOXONE HCL INJ 1 MG/ML SYG ONE (11:52)
[2017-01-25] MEDS ORDERED: ROCURONIUM BROMIDE 10 MG/ML VIAL ONE (12:01)
[2017-01-25] MEDS ORDERED: ROCURONIUM BROMIDE 10 MG/ML VIAL IV ONE (12:05)
[2017-01-25] MEDS ORDERED: SODIUM CHLORIDE 0.9% 1000ML 1,000 ML IVS ONE ×3 (12:10→13:10)
[2017-01-25] MEDS ORDERED: CALCIUM GLUCONATE INJ 1 GM/10 ML VIAL IV ONE (12:20)
[2017-01-25] MEDS ORDERED: SODIUM BICARBONATE SYRINGE 50 MEQ/50 ML SYG IV ONE (12:27)
[2017-01-25] MEDS ORDERED: MIDAZOLAM INJ 5 MG/5 ML VIAL ONE ×2 (12:36→12:49)
[2017-01-25] MEDS ORDERED: MAGNESIUM SULFATE PREMIX 2GM 50 ML IVPB ONE (12:41)
[2017-01-25] MEDS ORDERED: MAGNESIUM SULFATE INJ 5 GM/10 ML VIAL IV ONE (12:48)
[2017-01-25] MEDS ORDERED: SODIUM CHLORIDE 0.9% 50ML 50 ML ONE (12:49)
[2017-01-25] MEDS ORDERED: MIDAZOLAM INJ 25 MG in SODIUM CHLORIDE 0.9% 50ML 25 ML IVPB SCH (13:00)
[2017-01-25] MEDS ORDERED: ATROPINE 1 MG/10 ML SYG IV ONE (13:00)
--- NOTE | 2017-01-25 13:02 | RAD ---
EXAM DESCRIPTION: Chest,1 View CLINICAL HISTORY: 36 years, Female, post intubation COMPARISON: Chest x-ray dated 06/26/2016. FINDINGS: A single frontal chest radiograph was performed. The endotracheal tube passes into the RIGHT mainstem bronchus approximately 2.2 cm beyond the anneliese. A right-sided Port-A-Cath terminates in the RIGHT atrium in the setting of very low lung volumes. The lungs are poorly expanded and and clear. The costophrenic sulci are sharp. The cardiac silhouette, hilar regions, trachea, soft tissues and bony structures are unremarkable. IMPRESSION: The endotracheal tube resides in the RIGHT mainstem bronchus. Recommend immediate retraction by 5 cm. Low lung volumes. Electronically signed by: Shima Patrick MD 01/25/2017 1:01 PM CDT
[2017-01-25] MEDS ORDERED: SODIUM CHLORIDE 0.9% IVPB SCH (14:00)
[2017-01-25] MEDS ORDERED: MIDAZOLAM IVPB SCH (14:00)
[2017-01-25 19:13] VITALS: O2SAT 68
[2017-01-25 19:14] VITALS: BP 71/36
--- NOTE | 2017-01-26 06:42 | ED.PDOC ---
History of Present Illness - General Chief Complaint: Unresponsive Stated Complaint: Unresponsive, stopped breathing prior to arrival Time Seen by Provider: 01/25/17 11:43 Source: family, EMS Exam Limitations: clinical condition - History of Present Illness Initial Comments: Patient presents by EMS after she felt weak and had a syncopal event. When EMS arrived, she was only taking a couple of breaths per minute. CPR was started but she started breathing spontaneously again and regained consciousness. She presents to the E.R. lethargic but able to answer basic questions like her name and location. She is unable to tell us what happened. Timing/Duration: unsure Severity: severe Worsening Factors: nothing Associated Symptoms: other - unable to get more history Allergies/Adverse Reactions: Allergies NO KNOWN ALLERGY Allergy (Verified 12/12/16 20:48) Home Medications: Ambulatory Orders Gabapentin 300 mg PO TID 12/12/16 Morphine Sulfate ER 15 mg PO BID 12/12/16 Review of Systems - Review of Systems Unable to Obtain Due To: condition, clinical condition Past Medical History (General) - Patient Medical History Hx Seizures: No Hx Stroke: No Hx Dementia: No Hx Asthma: No Hx of COPD: No Hx Cardiac Disorders: No Hx Congestive Heart Failure: No Hx Pacemaker: No Hx Hypertension: Yes Hx Thyroid Disease: No Hx Diabetes: No Hx Gastroesophageal Reflux: Yes Hx Renal Disease: Yes - kidney stents, left Hx Cancer: Yes - cervical Hx of HIV: No Hx Hepatitis C: No Hx MRSA: Yes - 2016 nasal Surgical History: colectomy, Hysterectomy - Vaccination History Hx Tetanus, Diphtheria Vaccination: No Hx Influenza Vaccination: No Hx Pneumococcal Vaccination: No - Social History Hx Tobacco Use: No Hx Chewing Tobacco Use: No Hx Alcohol Use: No Hx Substance Use: No Hx Substance Use Treatment: No Hx Depression: Yes Hx Physical Abuse: No Hx Emotional Abuse: No Hx Suspected Abuse: No - Activities of Daily Living Hospice Agency (if applicable):: "[facility] [place]" - Female History Patient is a Female of Child Bearing Age (10 -59 yrs old): No - hysterectomy Patient : No Family Medical History - Family History Father Living Status: Still Living Hx Family Hypertension: Yes - brother Hx Family Stroke: Yes - brother Hx Family Cancer: Yes - mom- cervical cancer Mother Family History: No Known Living Status: Still Living Hx Family;Other: Pt is adopted Physical Exam - Physical Exam General Appearance: Lethargic Eye Exam: bilateral normal - PERRLA Ears, Nose, Throat: normal ENT inspection Neck: non-tender, full range of motion, supple Respiratory: lungs clear Cardiovascular/Chest: regular rate, rhythm, other - weak pulses Peripheral Pulses: radial,right: 1+, radial,left: 1+, femoral,right: 1+, femoral ,left: 1+, popliteal,right: 1+, popliteal,left: 1+, dorsalis pedis,right: 1+, dorsalis pedis,left: 1+, posterior tibialis,right: 1+, posterior tibialis,left: 1+ Gastrointestinal/Abdominal: normal bowel sounds, non tender, soft Neurologic: oriented x 3, other - lethargic Skin Exam: normal color Progress - Progress Progress: 01/26/17 06:43 Blood pressure was dropping so IV NS started. Patient began to have desaturations into the 80s. Oxygen by nasal cannulae was turned up. She went into the 90s but then desaturated to the 70s. High flow bag mask was started at 10 L. Patient went to 88% but then shortly started to desaturate again. The mother was at bedside and I asked if she would like us to intubate and she said yes. Initially, she elected to have us fly the patient to [facility] but then the family spoke and decided that it was the patient's wish to remain in [place]. Patient was intubated and mechanical ventilation was used to maintain oxygen saturations. Pulses diminished rapidly and the heart rate dropped to the 30s. At this point the patient was in PEA. The family asked that we keep her ventilated until her children could come and see her one more time. We did that. After the children spent some time with her, the mother expressed her desire for me to extubate the patient. She was pronounced right after extubation. Patient had no pulses and was in PEA just before extubation. The mother was informed that the patient would pass away right after intubation and she expressed understanding and agreement with this. Departure - Departure Clinical Impression: Respiratory failure Disposition: Departure Forms: ED Discharge - Pt. Copy, Patient Portal Self Enrollment Referrals: Devin Esquivel MD [Primary Care Provider] - 1-2 Weeks Home Medications: Ambulatory Orders Gabapentin 300 mg PO TID 12/12/16 Morphine Sulfate ER 15 mg PO BID 12/12/16
== END 2017-01-25 13:42 | disposition expired ==
LOC: ER 11:35
DX: J96.90 Respiratory failure, unspecified, unspecified whether with hypoxia or hypercapnia (principal); I10 Essential (primary) hypertension; Z85.41 Personal history of malignant neoplasm of cervix uteri; Z86.14 Personal history of Methicillin resistant Staphylococcus aureus infection
CPT/HCPCS: 31500; 36415; 36600; 71010; 80053; 82550; 82553; 82805; 82948; 83605; 83735; 83880; 84484; 85025; 93005; 94002; 94770; A4216; J2250; J2310; J3475; J7030